=== PATIENT | female | born 1985 | race Caucasian/White ===

== ENCOUNTER 2023-08-03 12:44 | Emergency (ER) | payer OTHER ==
[2023-08-03 13:12] VITALS: RESP 18; TEMP 98.3; O2SAT 98
--- NOTE | 2023-08-03 13:37 | ERPHSYRPT ---
- History of Present Illness Time Seen by Provider: 08/03/23 13:20 Source: patient Exam Limitations: no limitations Patient Subjective Stated Complaint: pt states she was picking up a tote a work and her a pop in her back. pt states she has a history of spine cancer Triage Nursing Assessment: pt ambulated into the er; pt is axo x4; c/o upper back pain; pt states 10/10 pain to neck and upper back; tenderness and swelling to upper back; pt c/o numbness and tingling to extremities; skin PDW; no respiratory distess present; vitals wnl Physician History: Patient is a 37-year-old female presents to our ED for evaluation of pain to her thoracic and lumbar spine. Patient states she was at work picking up a tote when she felt a pop in her upper back. Patient states she then felt pain rated 10 out of 10 shooting into her arms and legs. Patient states she has a history of spine cancer with subsequent surgery. Patient states she just wants to make sure that she is okay. No blunt trauma no fever. No diarrhea. No rash. No change in bowel bladder function. No saddle anesthesia. No lower extremity weakness. No recent back procedures. Symptoms are moderate in intensity. Movement reproduces pain. Patient otherwise voices no other complaints or concerns at this time. Portions of this note were created with voice recognition technology. There may be grammatical, spelling, punctuation or sound alike errors Timing/Duration: today Severity: moderate Modifying Factors: Improves With: movement Associated Symptoms: denies symptoms, other (Tingling of extremities) Allergies/Adverse Reactions: Iodinated Contrast Media Allergy (Verified 08/03/23 12:56) Anaphylactic Reaction nitrofurantoin [From Macrobid] Allergy (Verified 08/03/23 12:56) Hives Home Medications: Dextroamphetamine/Amphetamine [Dextroamp-Amphetamin 20 mg Tab] 20 mg PO TID PRN 08/03/23 [History] Hx Tetanus, Diphtheria Vaccination/Date Given: Yes Hx Influenza Vaccination/Date Given: Yes Hx Pneumococcal Vaccination/Date Given: Yes Immunizations Up to Date: Yes Travel Risk - International Travel Have you traveled outside of the country in past 3 weeks: No - Coronavirus Screening Are you exhibiting any of the following symptoms?: No Close contact with a COVID-19 positive Pt in past 14-21 Days: No - Vaccine Status Have you recieved a Covid-19 vaccination: Yes [employer]: Moderna - Vaccination Dates Date of 2cond Vaccination (if applicable): 2020 - Review of Systems Constitutional: No Symptoms, No Fever, No Chills Eyes: No Symptoms Ears, Nose, & Throat: No Symptoms Respiratory: No Symptoms, No Cough, No Dyspnea Cardiac: No Symptoms, No Chest Pain, No Edema, No Syncope Abdominal/Gastrointestinal: No Symptoms, No Abdominal Pain, No Nausea, No Vomiting, No Diarrhea Genitourinary Symptoms: No Symptoms, No Dysuria Musculoskeletal: No Symptoms, No Back Pain, No Neck Pain Skin: No Symptoms, No Rash Neurological: No Symptoms, No Dizziness, No Focal Weakness, No Sensory Changes Psychological: No Symptoms Endocrine: No Symptoms Hematologic/Lymphatic: No Symptoms Immunological/Allergic: No Symptoms All Other Systems: Reviewed and Negative - Past Medical History Pertinent Past Medical History: Yes Neurological History: No Pertinent History ENT History: No Pertinent History Cardiac History: No Pertinent History Respiratory History: No Pertinent History Endocrine Medical History: No Pertinent History Musculoskeletal History: Bone Cancer, Other GI Medical History: No Pertinent History History: No Pertinent History Psycho-Social History: Anxiety Female Reproductive Disorders: No Pertinent History - Past Surgical History Past Surgical History: Yes Neuro Surgical History: No Pertinent History Cardiac: No Pertinent History Respiratory: No Pertinent History Gastrointestinal: No Pertinent History Genitourinary: No Pertinent History Musculoskeletal: Orthopedic Surgery Female Surgical History: No Pertinent History Other Surgical History: T2, 6,7,8 tumor removal - Social History Smoking Status: Never smoker Exposure to second hand smoke: Yes Drug Use: none Patient Lives Alone: Yes - Female History Hx Now: No - Nursing Vital Signs Nursing Vital Signs: Initial Vital Signs Temperature 98.3 F 08/03/23 12:58 Pulse Rate 97 H 08/03/23 12:58 Respiratory Rate 18 08/03/23 12:58 Blood Pressure 141/110 08/03/23 12:58 O2 Sat by Pulse Oximetry 98 08/03/23 12:58 Pain Scale Pain Intensity [] 10 Pain Intensity 9 - Physical Exam General Appearance: no apparent distress, alert Eye Exam: PERRL/EOMI, eyes nml inspection Ears, Nose, Throat Exam: moist mucous membranes Neck Exam: normal inspection, non-tender, supple, full range of motion Respiratory Exam: normal breath sounds, lungs clear, No respiratory distress Cardiovascular Exam: regular rate/rhythm, normal heart sounds, normal peripheral pulses Gastrointestinal/Abdomen Exam: soft, normal bowel sounds, No tenderness, No mass Back Exam: normal inspection, normal range of motion, other (Tenderness to palpation at her upper thoracic and lumbar spine region), No CVA tenderness, No vertebral tenderness Extremity Exam: normal inspection, normal range of motion, pelvis stable Neurologic Exam: alert, oriented x 3, cooperative, normal mood/affect, nml cerebellar function, nml station & gait, sensation nml, No motor deficits Skin Exam: normal color, warm, dry, No rash Lymphatic Exam: No adenopathy SpO2 Interpretation: normal SpO2: 98 O2 Delivery: Room Air - Course Nursing assessment & vital signs reviewed: Yes - CT Exams Thoracic Spine CT Interpretation: Tele-radiologist Report (Minimal dextroscoliosis otherwise negative for acute findings) Lumbar Spine CT Interpretation: Tele-radiologist Report (Normal CT lumbar spine) Ordered Tests: Active Orders 24 hr Category Date Time Status LUMBAR SPINE W/O [CT] Stat Exams 08/03/23 13:08 Completed THORACIC SPINE W/O CONTRAST [CT] Stat Exams 08/03/23 13:08 Completed Medication Summary Discontinued Medications Generic Name Dose Route Start Last Admin Trade Name Freq PRN Reason Stop Dose Admin Dexamethasone Sodium Phosphate 6 mg 08/03/23 13:42 08/03/23 13:48 Dexamethasone Sod Phosphate 10 Mg/Ml IM 08/03/23 13:43 6 mg STAT ONE Administration Dexamethasone Sodium Phosphate Confirm 08/03/23 13:44 Dexamethasone Sod Phosphate 10 Mg/Ml Administered 08/03/23 13:45 Dose 10 mg .ROUTE .STK-MED ONE Ketorolac Tromethamine 30 mg 08/03/23 13:42 08/03/23 13:47 Ketorolac Tromethamine 30 Mg/Ml Inj IM 08/03/23 13:43 30 mg STAT ONE Administration Ketorolac Tromethamine Confirm 08/03/23 13:44 Ketorolac Tromethamine 30 Mg/Ml Inj Administered 08/03/23 13:45 Dose 30 mg .ROUTE .STK-MED ONE - Progress Progress: improved Progress Note: 37-year-old female history of tumor resection to thoracic spine presents to our ED with acute onset thoracic and lumbar spine pain after lifting a heavy tote. Physical exam reveals tenderness mostly around upper thoracic spine. Overlying soft tissue intact. CT lumbar and thoracic spine negative for acute pathology. Patient received Toradol and Decadron for pain. No indication for further workup will discharge home. Patient agrees to follow-up with her primary care doctor within 48 hours for reevaluation. Portions of this note were created with voice recognition technology. There may be grammatical, spelling, punctuation or sound alike errors Complexity problem addressed is moderate acute complicated No critical care time Complex of data reviewed and analyzed is moderate. Test ordered test reviewed. Results analyzed and correlated clinically with history and physical exam Risk of complication and or risk of morbidity/mortality of patient management is moderate. A prescription for Toradol forwarded to patient's pharmacy Vital stable. Time spent to discharge patient is approximately 20 minutes. Plan of care established for shared decision making. No social determinants of health present impede follow-up. Portions of this note were created with voice recognition technology. There may be grammatical, spelling, punctuation or sound alike errors 08/03/23 14:04 Counseled pt/family regarding: diagnosis, need for follow-up, rad results - Departure Departure Disposition: Home Clinical Impression: Thoracic spine pain, extremity paresthesias Condition: Stable Critical Care Time: No Referrals: DOCTOR,NO FAMILY [Primary Care Provider] - Follow up/PCP as directed YOHAN HERNANDEZ MD [ACTIVE STAFF] - Follow up/PCP as directed Additional Instructions: Discharge/Care Plan ADALBERTOCIROLAURIE LANCE was seen on 08/03/23 in the Emergency Room. The patient was counseled regarding Diagnosis,Lab results, Imaging studies, need for follow up and when to return to the Emergency Room. Prescriptions given: Discharge Note I have spoken with the patient and/or caregivers. I have explained the patient's condition, diagnosis and treatment plan based on the information available to me at this time. I have answered the patient's and/or caregiver's questions and addressed any concerns. The patient and/or caregivers have as good understanding of the patient's diagnosis, condition and treatment plan as can be expected at this point. The vital signs have been stable. The patient's condition is stable and appropriate for discharge from the emergency department. The patient will pursue further outpatient evaluation with the primary care physician or other designated or consulting physician as outlined in the discharge instructions. The patient and/or caregivers are agreeable to this plan of care and follow-up instructions have been explained in detail. The patient and/or caregivers have received these instruction. The patient/and or caregivers are aware that any significant change in condition or worsening of symptoms should prompt an immediate return to this or the closest emergency department or call 911. Prescriptions: Ketorolac Trometh 10 mg Tab [TORAdol 10 MG TABLET] 10 mg PO TID 5 Days #15 tablet
[2023-08-03] MEDS ORDERED: TORAdol 30 mg Injection ONE (13:44)
[2023-08-03] MEDS ORDERED: DECADRON 10MG INJ. ONE (13:44)
[2023-08-03] MEDS: TORAdol 30 mg Injection IM ONE (13:47)
[2023-08-03] MEDS: DECADRON 10MG INJ. IM ONE (13:48)
--- NOTE | 2023-08-03 13:53 | XRAY ---
Indication: Pain. T6-T8 mass with surgery and radiation therapy 2004. Multiple contiguous axial images obtained through the thoracic spine. Sagittal and coronal reformatted images obtained. Comparison: None T6-T8 fusion hardware produces beam artifact limiting these levels. Minimal T4-T5 degenerative endplate spurring. Remaining levels negative for acute fracture, suspicious bony lesions, or spinal canal stenosis. Sagittal and coronal reformatted images demonstrates normal thoracic kyphosis and minimal dextroscoliosis centered at T8. No acute compression fracture or subluxation. Visualized noncontrasted soft tissues are unremarkable. Impression: 1. Beam artifact from T6-T8 fusion hardware. 2. Minimal T4-T5 degenerative endplate spurring and minimal dextroscoliosis. 3. Remaining CT thoracic spine without contrast exam is normal.
--- NOTE | 2023-08-03 13:55 | XRAY ---
Indication: Pain. T6-T8 mass with surgery and radiation therapy 2004. Multiple contiguous axial images obtained through the lumbar spine. Sagittal and coronal reformatted images obtained. Comparison: None Normal appearing bones, articulation, and soft tissues. Impression: Normal CT lumbar spine.
[2023-08-03 14:15] VITALS: BP 136/84; PULSE 71
== END 2023-08-03 14:20 | disposition home or self-care (01) ==
LOC: ED 12:44
DX: M54.6 Pain in thoracic spine (principal); R20.2 Paresthesia of skin; M54.50 Low back pain, unspecified; Z79.899 Other long term (current) drug therapy
CPT/HCPCS: 72128; 72131; 96372; 99284; J1100; J1885

== ENCOUNTER 2024-01-13 12:42 | Emergency (ER) | payer SELFPAY ==
[2024-01-13 12:52] VITALS: RESP 18; TEMP 97.9; O2SAT 99
[2024-01-13] MEDS ORDERED: TORAdol 30 mg Injection ONE (13:24)
[2024-01-13] MEDS: TORAdol 30 mg Injection IM ONE (13:25)
--- NOTE | 2024-01-13 14:00 | XRAY ---
Indication: Pain. No known injury. Comparison: None 3 view right wrist obtained. No bony, articular, or soft tissue abnormalities.
--- NOTE | 2024-01-13 14:12 | ERPHSYRPT ---
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 PT right wrist slightly swollen adn tender to touch. Pt right hand tender to touch. Physician History: 38-year-old [id number] female presented in the ER with complains of right wrist pain since yesterday. 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 Reports moderate to severe sharp pain radiating to the hand and proximally towards the elbow with painful movements at the wrist. No distal numbness or tingling. Denies any fever or chills. Allergies/Adverse Reactions: Iodinated Contrast Media Allergy (Verified 08/03/23 12:56) Anaphylactic Reaction nitrofurantoin [From Macrobid] Allergy (Verified 08/03/23 12:56) Hives Home Medications: Dextroamphetamine/Amphetamine [Dextroamp-Amphetamin 20 mg Tab] 20 mg PO TID PRN 08/03/23 [History] Hx Tetanus, Diphtheria Vaccination/Date Given: Yes Hx Influenza Vaccination/Date Given: Yes Hx Pneumococcal Vaccination/Date Given: Yes Immunizations Up to Date: No Travel Risk - International Travel Have you traveled outside of the country in past 3 weeks: No - Emerging Infectious Disease Are you exhibiting symptoms associated with any current EIDs: No - Review of Systems Constitutional: No Symptoms Ears, Nose, & Throat: No Symptoms Respiratory: No Symptoms Cardiac: No Symptoms Abdominal/Gastrointestinal: No Symptoms Musculoskeletal: Joint Pain, Joint Swelling Skin: No Symptoms Neurological: No Symptoms Hematologic/Lymphatic: No Symptoms - Past Medical History Pertinent Past Medical History: Yes Neurological History: No Pertinent History ENT History: No Pertinent History Cardiac History: No Pertinent History Respiratory History: No Pertinent History Endocrine Medical History: No Pertinent History Musculoskeletal History: Bone Cancer, Other GI Medical History: No Pertinent History History: No Pertinent History Psycho-Social History: Anxiety Female Reproductive Disorders: No Pertinent History - Past Surgical History Past Surgical History: Yes Neuro Surgical History: No Pertinent History Cardiac: No Pertinent History Respiratory: No Pertinent History Gastrointestinal: No Pertinent History Genitourinary: No Pertinent History Musculoskeletal: Orthopedic Surgery Female Surgical History: No Pertinent History Other Surgical History: T2, 6,7,8 tumor removal - Female History Hx Last Menstrual Period: 01/01/2024 Hx Now: No - Social History Smoking Status: Never smoker Exposure to second hand smoke: Yes Drug Use: none Patient Lives Alone: Yes - Social Determinants of Health Will the patient participate in the screening: Declined to provide - Nursing Vital Signs Nursing Vital Signs: Initial Vital Signs Temperature 97.9 F 01/13/24 12:46 Pulse Rate 90 01/13/24 12:46 Respiratory Rate 18 01/13/24 12:46 Blood Pressure 140/85 01/13/24 12:46 O2 Sat by Pulse Oximetry 99 01/13/24 12:46 Pain Scale Pain Intensity 7 - Physical Exam General Appearance: no apparent distress, alert Neck Exam: normal inspection, full range of motion Cardiovascular/Respiratory Exam: normal breath sounds, regular rate/rhythm Wrist Exam: bone tenderness (Mild generalized but more on the radial side right wrist), limited ROM, pain, soft tissue tenderness, swelling (Minimal) Hand Exam: normal inspection, no evidence of injury, normal ROM, swelling (Tenderness along lateral aspect) Neuro/Tendon Exam: normal sensation, normal motor functions, normal tendon functions Mental Status Exam: alert, oriented x 3, cooperative Skin Exam: normal color SpO2 Interpretation: normal SpO2: 99 O2 Delivery: Room Air Ordered Tests: Active Orders 24 hr Category Date Time Status WRIST (MIN 3 VIEWS) Stat Exams 01/13/24 13:20 Completed Medication Summary Discontinued Medications Generic Name Dose Route Start Last Admin Trade Name Raman PRN Reason Stop Dose Admin Ketorolac Tromethamine 30 mg 01/13/24 13:20 01/13/24 13:25 Ketorolac Tromethamine 30 Mg/Ml Inj IM 01/13/24 13:21 30 mg STAT ONE Administration Ketorolac Tromethamine Confirm 01/13/24 13:24 Ketorolac Tromethamine 30 Mg/Ml Inj Administered 01/13/24 13:25 Dose 30 mg .ROUTE .STK-MED ONE - Progress Progress: improved, pain not gone completely, re-examined Progress Note: 01/13/24 14:09 38 year-old is evaluated for right wrist pain since yesterday without any known direct trauma. Had some popping sensation while lifting objects at work. Patient denies any numbness in the fingers. Pain is reproducible and more tenderness on the lateral side of the distal forearm/wrist and hand. I believe patient has ligamentous strain as her x-rays are negative for fracture dislocation. She is given Toradol for symptomatic relief and will continue with diclofenac to go home. Placed in wrist splint. Outpatient orthopedics follow- up recommended. Discussed signs symptoms of worsening needing return to ER which she seems understanding. Counseled pt/family regarding: diagnosis, need for follow-up, rad results Medical Desision Making - Diagnostic Testing Diagnostic test were ordered, analyzed, and reviewed by me: Yes Radiological Interpretation: Interpreted by me, Reviewed by me - Risk of complications The pt has a mod risk of morbidity or mortality based on: Need for prescription drug management - Departure Departure Disposition: Home Clinical Impression: Right wrist sprain Condition: Stable Critical Care Time: No Referrals: DOCTOR,NO FAMILY [Primary Care Provider] - Follow up/PCP as directed SUZANNE MORENO MD [ACTIVE STAFF] - Follow up other (Call for appointment for reevaluation in 1 to 2 days.) Instructions: Common Wrist Injuries ED Additional Instructions: Take Tylenol/diclofenac as needed. Intermittent ice application. Avoid exertional activities. Follow-up with primary care/orthopedics for reevaluation. Return to ER for worsening pain swelling, difficulty movements, numbness tingling or weakness in the hand. Prescriptions: Diclofenac Sodium 50 mg [Voltaren 50 mg] 50 mg PO TID PRN 10 Days #25 tablet PRN Reason: Pain
[2024-01-13 14:14] VITALS: BP 135/95; PULSE 81
== END 2024-01-13 14:24 | disposition home or self-care (01) ==
LOC: ED 12:42
DX: S63.501A Unspecified sprain of right wrist, initial encounter (principal); X50.0XXA Overexertion from strenuous movement or load, initial encounter; X50.3XXA Overexertion from repetitive movements, initial encounter; Y92.512 Supermarket, store or market as the place of occurrence of the external cause; Y99.0 Civilian activity done for income or pay; Z79.899 Other long term (current) drug therapy
CPT/HCPCS: 73110; 96372; 99283; J1885; L3908

== ENCOUNTER 2024-03-30 11:49 | Emergency (ER) | payer BC ==
[2024-03-30 12:24] VITALS: TEMP 98.2
[2024-03-30 13:12] LABS: INFLUENZA A NEGATIVE (NEGATIVE); INFLUENZA B NEGATIVE (NEGATIVE); RESPIRATORY SYNCTIAL VIRUS NEGATIVE (NEGATIVE); SARS-CoV-2 Xpert Express NEGATIVE (NEGATIVE)
[2024-03-30 13:36] LABS: ADD URINE CULTURE? YES (NO); Appearance Cloudy (Clear); Bacteria Many /HPF (None Seen); Bilirubin Negative (Negative); Blood Negative (Negative); Epithelial Cells Many /HPF (None Seen); Glucose, Urine Negative (Negative); Hyaline Casts NONE SEEN /LPF (0-2); Ketones Negative (Negative); Leukocyte Esterase Negative (Negative); Nitrite Negative (Negative); Protein,Urine Dip Negative (Negative); RBC 0-2 /HPF (0-5); Specific Gravity 1.025 (1.005-1.030)
--- NOTE | 2024-03-30 13:52 | ERPHSYRPT ---
- History of Present Illness Time Seen by Provider: 03/30/24 13:31 Historian: patient Exam Limitations: no limitations Patient Subjective Stated Complaint: C/O Left flank pain that started on 03/26/24. Patient indicates she thinks she has a UTI but is also c/o nasal congestion, headache, fatigue. Triage Nursing Assessment: Patient ambulated back to ER. She is alert and oriented. No SOB. No cough. Skin tone normal. Nasal congestion is present. Physician History: 38 years old female with history of kidney stone/pyelonephritis presented in the ER with 5 days history of left flank pain moderate to severe sharp throbbing with some radiation to the left groin area with associated increased dysuria frequency and dark urine with associated nausea. Patient reports mild improvement in urinary symptoms today but still having pain. Also reports having headache and sinus/nasal congestion. No known sick contact. Allergies/Adverse Reactions: Iodinated Contrast Media Allergy (Verified 03/30/24 12:17) Anaphylactic Reaction nitrofurantoin [From Macrobid] Allergy (Verified 03/30/24 12:17) Hives Home Medications: Dextroamphetamine/Amphetamine [Dextroamp-Amphetamin 20 mg Tab] 20 mg PO TID PRN 08/03/23 [History] Hx Tetanus, Diphtheria Vaccination/Date Given: Yes Hx Influenza Vaccination/Date Given: Yes Hx Pneumococcal Vaccination/Date Given: Yes Immunizations Up to Date: Yes Travel Risk - International Travel Have you traveled outside of the country in past 3 weeks: No - Emerging Infectious Disease Are you exhibiting symptoms associated with any current EIDs: Yes Symptoms: Abdominal Pain, Headaches/Body Aches/, Vomitting - Review of Systems Constitutional: Fatigue Eyes: No Symptoms Ears, Nose, & Throat: Nose Congestion Respiratory: No Symptoms Cardiac: No Symptoms Abdominal/Gastrointestinal: Abdominal Pain, Nausea Genitourinary Symptoms: Dysuria, Frequency, Hematuria, Flank Pain Musculoskeletal: Back Pain Skin: No Symptoms Neurological: No Symptoms Endocrine: No Symptoms Hematologic/Lymphatic: No Symptoms Immunological/Allergic: No Symptoms - Past Medical History Pertinent Past Medical History: Yes Neurological History: No Pertinent History ENT History: No Pertinent History Cardiac History: No Pertinent History Respiratory History: No Pertinent History Endocrine Medical History: No Pertinent History Musculoskeletal History: Bone Cancer, Other GI Medical History: No Pertinent History History: No Pertinent History Psycho-Social History: Anxiety Female Reproductive Disorders: No Pertinent History Other Medical History: Bulding disc - Past Surgical History Past Surgical History: Yes Neuro Surgical History: No Pertinent History Cardiac: No Pertinent History Respiratory: No Pertinent History Gastrointestinal: No Pertinent History Genitourinary: No Pertinent History Musculoskeletal: Orthopedic Surgery Female Surgical History: No Pertinent History Other Surgical History: T6,7,8 tumor removal, screw in ankle - Female History Hx Last Menstrual Period: 1 month ago Hx Now: No - Social History Smoking Status: Never smoker Exposure to second hand smoke: Yes Drug Use: none Patient Lives Alone: Yes - Social Determinants of Health Will the patient participate in the screening: Yes Do you worry about a steady place to live?: No Do you have any problems with any of the following?: No known problems In the past 12 months,have you had to go without utilities?: No Transportation Issues: No Has anyone in your support network made you feel unsafe?: No Have you or anyone in your house had to go without enough: No - Nursing Vital Signs Nursing Vital Signs: Initial Vital Signs Temperature 98.2 F 03/30/24 12:22 Pulse Rate 100 H 03/30/24 12:22 Respiratory Rate 20 03/30/24 12:22 Blood Pressure 132/66 03/30/24 12:22 O2 Sat by Pulse Oximetry 98 03/30/24 12:22 Pain Scale Pain Intensity 10 - Physical Exam General Appearance: no apparent distress, alert Eye Exam: PERRL/EOMI Ears, Nose, Throat Exam: normal ENT inspection, moist mucous membranes Neck Exam: normal inspection, non-tender, supple, full range of motion Respiratory Exam: normal breath sounds, lungs clear Cardiovascular Exam: regular rate/rhythm, normal heart sounds Gastrointestinal/Abdomen Exam: soft, normal bowel sounds, tenderness (Flank with positive CVA tenderness) Extremity Exam: normal inspection, normal range of motion Neurologic Exam: alert, oriented x 3, cooperative Skin Exam: normal color SpO2 Interpretation: normal SpO2: 98 O2 Delivery: Room Air Ordered Tests: Active Orders 24 hr Category Date Time Status IV Insertion STAT Care 03/30/24 13:49 Active NPO (ED) STAT Care 03/30/24 13:49 Active ABDOMEN AND PELVIS W/0 CONTRAS [CT] Stat Exams 03/30/24 13:49 Completed CBC W DIFF Stat Lab 03/30/24 15:15 Completed CMP Stat Lab 03/30/24 15:15 Completed CULTURE,URINE Stat Lab 03/30/24 12:34 Received HCG QUALITATIVE, URINE Stat Lab 03/30/24 13:00 Completed LIPASE Stat Lab 03/30/24 15:15 Completed UA W/RFX UR CULTURE Stat Lab 03/30/24 12:34 Completed Medication Summary Discontinued Medications Generic Name Dose Route Start Last Admin Trade Name Raman PRN Reason Stop Dose Admin Sodium Chloride 1,000 mls @ 999 mls/hr 03/30/24 13:49 03/30/24 15:14 Sodium Chloride 0.9% 1000 Ml IV 03/30/24 14:49 Not Given .Q1H1M STA Ketorolac Tromethamine 30 mg 03/30/24 13:49 03/30/24 15:14 Ketorolac Tromethamine 30 Mg/Ml Inj IV 03/30/24 13:50 Not Given STAT ONE Ketorolac Tromethamine 30 mg 03/30/24 15:15 03/30/24 15:29 Ketorolac Tromethamine 30 Mg/Ml Inj IM 03/30/24 15:16 30 mg STAT ONE Administration Ketorolac Tromethamine Confirm 03/30/24 15:26 Ketorolac Tromethamine 30 Mg/Ml Inj Administered 03/30/24 15:27 Dose 30 mg .ROUTE .STK-MED ONE Ondansetron HCl 4 mg 03/30/24 13:49 03/30/24 15:14 Ondansetron Hcl 4 Mg/2 Ml Vial IV 03/30/24 13:50 Not Given STAT ONE Ondansetron HCl 4 mg 03/30/24 15:15 03/30/24 15:28 Zofran 4 Mg/Udtablet Orally Disintegrating PO 03/30/24 15:16 4 mg STAT ONE Administration Ondansetron HCl Confirm 03/30/24 15:27 Zofran 4 Mg/Udtablet Orally Disintegrating Administered 03/30/24 15:28 Dose 4 mg .ROUTE .STK-MED ONE Lab/Rad Data: Laboratory Result Diagrams 03/30/24 15:15 03/30/24 15:15 Laboratory Results 03/30/24 03/30/24 03/30/24 Range/Units 15:15 15:15 13:00 WBC 8.5 (3.98-10.04) x10^3/uL RBC 4.37 (3.93-5.22) x10^6/uL Hgb 14.1 (11.2-15.7) g/dL Hct 41.9 (34.1-44.9) % MCV 95.9 H (79.4-94.8) fL MCH 32.3 H (25.6-32.2) pg MCHC 33.7 (32.2-35.5) g/dL RDW 11.9 (11.7-14.4) % Plt Count 271 (182-369) x10^3/uL MPV 11.0 (9.4-12.3) fL Gran % 57.9 (34.0-71.1) % Immature Gran % (Auto) 0.2 (0.001-0.429) % Nucleat RBC Rel Count 0.0 (0.00-0.2) % Eos # (Auto) 0.22 (0.04-0.36) x10^3/uL Immature Gran # (Auto) 0.02 (0.001-0.031) x10^3u/L Absolute Lymphs (auto) 2.65 (1.18-3.74) x10^3/uL Absolute Monos (auto) 0.63 (0.24-0.86) x10^3/uL Absolute Nucleated RBC 0.00 (0.00-0.012) x10^3u/L Lymphocytes % 31.1 (19.3-51.7) % Monocytes % 7.4 (4.7-12.5) % Eosinophils % 2.6 (0.7-5.8) % Basophils % 0.8 (0.1-1.2) % Absolute Granulocytes 4.94 (1.56-6.13) x10^3/uL Basophils # 0.07 (0.01-0.08) x10^3/uL Sodium 137 (135-145) mmol/L Potassium 4.0 (3.5-5.1) mmol/L Chloride 105 (98-107) mmol/L Carbon Dioxide 22 (22-30) mmol/L Anion Gap 14.2 (5-15) MEQ/L BUN 20 H (7-17) mg/dL Creatinine 0.65 (0.52-1.04) mg/dL Estimated GFR 115.5 ML/MIN Glucose 106 (74-106) mg/dL Calcium 9.0 (8.4-10.2) mg/dL Total Bilirubin 0.40 (0.2-1.3) mg/dL AST 24 (14-36) U/L ALT 16 (0-35) U/L Alkaline Phosphatase 58 (38-126) U/L Serum Total Protein 7.3 (6.3-8.2) g/dL Albumin 4.4 (3.5-5.0) g/dL Lipase 73 (23-300) U/L Urine Color (Yellow) Urine Appearance (Clear) Urine pH (4.6-8.0) Ur Specific [place] (1.005-1.030) Urine Protein (Negative) Urine Glucose (UA) (Negative) mg/dL Urine Ketones (Negative) Urine Blood (Negative) Urine Nitrite (Negative) Urine Bilirubin (Negative) Urine Urobilinogen (0.2) mg/dL Ur Leukocyte Esterase (Negative) U Hyaline Cast (Auto) (0-2) /LPF Urine Microscopic RBC (0-5) /HPF Urine Microscopic WBC (0-5) /HPF Ur Epithelial Cells (None Seen) /HPF Urine Bacteria (None Seen) /HPF Urine Culture Reflexed (NO) Urine HCG, Qual NEGATIVE (NEGATIVE) Influenza Type A Ag (NEGATIVE) Influenza Type B Ag (NEGATIVE) RSV (PCR) (NEGATIVE) SARS-CoV-2 (PCR) (NEGATIVE) 03/30/24 03/30/24 Range/Units 12:34 12:28 WBC (3.98-10.04) x10^3/uL RBC (3.93-5.22) x10^6/uL Hgb (11.2-15.7) g/dL Hct (34.1-44.9) % MCV (79.4-94.8) fL MCH (25.6-32.2) pg MCHC (32.2-35.5) g/dL RDW (11.7-14.4) % Plt Count (182-369) x10^3/uL MPV (9.4-12.3) fL Gran % (34.0-71.1) % Immature Gran % (Auto) (0.001-0.429) % Nucleat RBC Rel Count (0.00-0.2) % Eos # (Auto) (0.04-0.36) x10^3/uL Immature Gran # (Auto) (0.001-0.031) x10^3u/L Absolute Lymphs (auto) (1.18-3.74) x10^3/uL Absolute Monos (auto) (0.24-0.86) x10^3/uL Absolute Nucleated RBC (0.00-0.012) x10^3u/L Lymphocytes % (19.3-51.7) % Monocytes % (4.7-12.5) % Eosinophils % (0.7-5.8) % Basophils % (0.1-1.2) % Absolute Granulocytes (1.56-6.13) x10^3/uL Basophils # (0.01-0.08) x10^3/uL Sodium (135-145) mmol/L Potassium (3.5-5.1) mmol/L Chloride (98-107) mmol/L Carbon Dioxide (22-30) mmol/L Anion Gap (5-15) MEQ/L BUN (7-17) mg/dL Creatinine (0.52-1.04) mg/dL Estimated GFR ML/MIN Glucose (74-106) mg/dL Calcium (8.4-10.2) mg/dL Total Bilirubin (0.2-1.3) mg/dL AST (14-36) U/L ALT (0-35) U/L Alkaline Phosphatase (38-126) U/L Serum Total Protein (6.3-8.2) g/dL Albumin (3.5-5.0) g/dL Lipase (23-300) U/L Urine Color Yellow (Yellow) Urine Appearance Cloudy A (Clear) Urine pH 6.0 (4.6-8.0) Ur Specific [place] 1.025 (1.005-1.030) Urine Protein Negative (Negative) Urine Glucose (UA) Negative (Negative) mg/dL Urine Ketones Negative (Negative) Urine Blood Negative (Negative) Urine Nitrite Negative (Negative) Urine Bilirubin Negative (Negative) Urine Urobilinogen 1.0 A (0.2) mg/dL Ur Leukocyte Esterase Negative (Negative) U Hyaline Cast (Auto) NONE SEEN (0-2) /LPF Urine Microscopic RBC 0-2 (0-5) /HPF Urine Microscopic WBC 3-5 (0-5) /HPF Ur Epithelial Cells Many A (None Seen) /HPF Urine Bacteria Many A (None Seen) /HPF Urine Culture Reflexed YES (NO) Urine HCG, Qual (NEGATIVE) Influenza Type A Ag NEGATIVE (NEGATIVE) Influenza Type B Ag NEGATIVE (NEGATIVE) RSV (PCR) NEGATIVE (NEGATIVE) SARS-CoV-2 (PCR) NEGATIVE (NEGATIVE) - Progress Progress: improved, pain not gone completely, re-examined Progress Note: 03/30/24 17:22 38 years old is evaluated in the ER for left flank pain with nausea along with also having some URI symptoms. Patient is given symptomatic treatment, on reev aluation her pain is better but not completely resolved. Workup showed normal white count, fairly unremarkable chemistries and no definite UTI. Obtain CT abdomen pelvis without contrast which is consistent with diffuse fecal load and possible fecal impaction. No pyelonephritis, stone or any other acute intra- abdominal pelvic findings. I have shared the results of workup with patient, recommended manual disimpaction which she did not agree. I have also suggested soapsuds enema which patient initially agreed but later on does not want it to be done and will do enemas at home. Patient is currently afebrile., COVID flu and RSV are negative. She is recommended to take daily MiraLAX, stool softener and use enema tonight. Discussed signs symptoms of worsening needing return to ER which he seems understanding. Counseled pt/family regarding: lab results, diagnosis, need for follow-up, rad results Medical Desision Making - Diagnostic Testing Diagnostic test were ordered, analyzed, and reviewed by me: Yes Radiological Interpretation: Reviewed by me - Risk of complications The pt has a mod risk of morbidity or mortality based on: Need for prescription drug management - Departure Departure Disposition: Home Clinical Impression: Flank pain, Constipation Condition: Stable Critical Care Time: No Referrals: DOCTOR,NO FAMILY [Primary Care Provider] - Follow up with PCP 1 day Instructions: Flank Pain, Fecal Impaction Additional Instructions: Take daily MiraLAX and stool softener. Use enema tonight. Follow-up with your primary care for reevaluation. Take Tylenol/ibuprofen as needed. Return to ER for any worsening. Prescriptions: Docusate Sodium 100 mg [Colace 100 MG] 100 mg PO BID #60 cap Sodium Phosphate,[place]-Dibasic [Fleet Enema] 266 ml RC DAILY PRN PRN 3 Days #3 amp PRN Reason: Constipation Polyethylene Glycol 3350 17 gm [Miralax Powder 17GM PACKET] 17 gm PO DAILY #30 packet
[2024-03-30 14:03] LABS: HCG URINE TEST NEGATIVE (NEGATIVE)
--- NOTE | 2024-03-30 15:06 | XRAY ---
Indication: Left flank pain. Multiple contiguous axial images obtained through the abdomen and pelvis without contrast using renal stone protocol. Comparison: None Lung bases clear. Heart not enlarged. No renal calculus or evidence for obstructive uropathy in either system. Stomach distended with food. Noncontrasted stomach and bowel loops appear nonobstructed with normal appendix. Moderate diffuse scattered colonic fecal debris with moderate rectal impaction. No free fluid/air. Remaining liver, gallbladder, pancreas, spleen, adrenal glands, kidneys, ureters, bladder, uterus, and aorta are unremarkable for noncontrast exam. Osseous structures intact with incompletely visualized mid thoracic spinal fusion hardware. Impression: 1. Moderate diffuse fecal stasis with rectal impaction. 2. Remaining CT abdomen/pelvis without contrast exam is negative.
[2024-03-30] MEDS: Zofran 4 MG/2 ML VIAL IV ONE (15:14)
[2024-03-30] MEDS: Sodium Chloride 0.9% 1000 ML 1,000 ML IV STA (15:14)
[2024-03-30] MEDS: TORAdol 30 mg Injection IV ONE (15:14)
[2024-03-30] MEDS ORDERED: TORAdol 30 mg Injection ONE (15:26)
[2024-03-30] MEDS ORDERED: ZOFRAN ODT 4 MG ONE (15:27)
[2024-03-30] MEDS: ZOFRAN ODT 4 MG PO ONE (15:28)
[2024-03-30] MEDS: TORAdol 30 mg Injection IM ONE (15:29)
[2024-03-30 16:00] LABS: Absolute Neutrophil Ct (ANC) 4.94 x10^3/uL (1.56-6.13); BASOPHIL % 0.8 % (0.1-1.2); Basophil (Absolute #) 0.07 x10^3/uL (0.01-0.08); Eosinophil % 2.6 % (0.7-5.8); Eosinophil (Absolute #) 0.22 x10^3/uL (0.04-0.36); Hematocrit 41.9 % (34.1-44.9); Hemoglobin 14.1 g/dL (11.2-15.7); IMMATURE GRAN # 0.02 x10^3u/L (0.001-0.031); IMMATURE GRAN % 0.2 % (0.001-0.429); Lymphocyte (Absolute #) 2.65 x10^3/uL (1.18-3.74); Lymphocytes % 31.1 % (19.3-51.7); Mean Cell Volume 95.9 fL (79.4-94.8); Mean Corpuscular Hemoglobin 32.3 pg (25.6-32.2); Mean Corpuscular Hgb Concent. 33.7 g/dL (32.2-35.5); Monocyte (Absolute #) 0.63 x10^3/uL (0.24-0.86); Monocytes % 7.4 % (4.7-12.5); Neutrophil % 57.9 % (34.0-71.1); Platelet Count 271 x10^3/uL (182-369); Red Blood Count 4.37 x10^6/uL (3.93-5.22); Red Cell Distribution Width 11.9 % (11.7-14.4); White Blood Count 8.5 x10^3/uL (3.98-10.04)
[2024-03-30 16:14] LABS: ALBUMIN 4.4 g/dL (3.5-5.0); ANION GAP 14.2 MEQ/L (5-15); BILIRUBIN,TOTAL 0.4 mg/dL (0.2-1.3); Creatinine 1 0.65 mg/dL (0.52-1.04); EST GLOMERULAR FILTRATION RATE 115.5 ML/MIN; Total Protein 7.3 g/dL (6.3-8.2)
[2024-03-30 17:26] VITALS: O2SAT 98
[2024-03-30 17:32] VITALS: BP 125/60; PULSE 88; RESP 20
== END 2024-03-30 17:33 | disposition home or self-care (01) ==
LOC: ED 11:49
DX: R10.9 Unspecified abdominal pain (principal); K59.00 Constipation, unspecified; R30.0 Dysuria; R11.0 Nausea; R51.9 Headache, unspecified; Z79.899 Other long term (current) drug therapy
CPT/HCPCS: 0241U; 36415; 74176; 80053; 81001; 81025; 83690; 85025; 87086; 96372; 99284; J1885; Q0162

== ENCOUNTER 2024-05-12 12:36 | Emergency (ER) | payer BC ==
[2024-05-12 13:56] VITALS: RESP 18; TEMP 97.2
--- NOTE | 2024-05-12 13:59 | ERPHSYRPT ---
- History of Present Illness Time Seen by Provider: 05/12/24 13:59 Source: patient Exam Limitations: no limitations Physician History: This is a 38-year-old white female patient who was having a sore throat that started last night and worsened throughout the night and this morning with associated swelling of her left jaw and left side neck. She is not having any trouble breathing in the room air oxygen saturation levels are 100%. She has not had stridor or difficulty swallowing. When she does swallow she does sense that there is some area of inflammation on the left side. She has not spit up not undigested food or pills that she has recently taken. She has not had a fever. Timing/Duration: yesterday Cough Quality/Degree: no cough Possible Cause: no prior episodes, unknown cause Associated Symptoms: denies symptoms Allergies/Adverse Reactions: Iodinated Contrast Media Allergy (Verified 05/12/24 13:56) Anaphylactic Reaction nitrofurantoin [From Macrobid] Allergy (Verified 05/12/24 13:56) Hives Home Medications: Dextroamphetamine/Amphetamine [Dextroamp-Amphetamin 20 mg Tab] 20 mg PO TID PRN 08/03/23 [History] Hx Tetanus, Diphtheria Vaccination/Date Given: Yes Hx Influenza Vaccination/Date Given: Yes Hx Pneumococcal Vaccination/Date Given: Yes Travel Risk - International Travel Have you traveled outside of the country in past 3 weeks: No - Emerging Infectious Disease Are you exhibiting symptoms associated with any current EIDs: Yes Symptoms: Abdominal Pain, Headaches/Body Aches/, Vomitting - Review of Systems Constitutional: No Symptoms Eyes: No Symptoms Ears, Nose, & Throat: Throat Pain (Left side with swallowing), Throat Swelling (Left side) Respiratory: No Stridor, No Wheezing Cardiac: No Symptoms Abdominal/Gastrointestinal: No Symptoms Genitourinary Symptoms: No Symptoms Musculoskeletal: No Symptoms Skin: No Symptoms Neurological: No Symptoms Psychological: No Symptoms Endocrine: No Symptoms Hematologic/Lymphatic: No Symptoms Immunological/Allergic: No Symptoms All Other Systems: Reviewed and Negative - Past Medical History Pertinent Past Medical History: Yes Neurological History: No Pertinent History ENT History: No Pertinent History Cardiac History: No Pertinent History Respiratory History: No Pertinent History Endocrine Medical History: No Pertinent History Musculoskeletal History: Bone Cancer, Other GI Medical History: No Pertinent History History: No Pertinent History Psycho-Social History: Anxiety Female Reproductive Disorders: No Pertinent History Other Medical History: Bulding disc - Past Surgical History Past Surgical History: Yes Neuro Surgical History: No Pertinent History Cardiac: No Pertinent History Respiratory: No Pertinent History Gastrointestinal: No Pertinent History Genitourinary: No Pertinent History Musculoskeletal: Orthopedic Surgery Female Surgical History: No Pertinent History Other Surgical History: T6,7,8 tumor removal, screw in ankle - Female History Hx Last Menstrual Period: 1 month ago - Social History Smoking Status: Never smoker Exposure to second hand smoke: Yes Drug Use: none Patient Lives Alone: Yes - Social Determinants of Health Will the patient participate in the screening: Yes Do you worry about a steady place to live?: No In the past 12 months,have you had to go without utilities?: No Transportation Issues: No Has anyone in your support network made you feel unsafe?: No Have you or anyone in your house had to go without enough: No - Nursing Vital Signs Nursing Vital Signs: Initial Vital Signs Temperature 97.2 F 05/12/24 13:54 Pulse Rate 89 05/12/24 13:54 Respiratory Rate 18 05/12/24 13:54 Blood Pressure 141/77 05/12/24 13:54 O2 Sat by Pulse Oximetry 97 05/12/24 13:54 Pain Scale Pain Intensity 8 - Physical Exam General Appearance: no apparent distress, alert, anxiety Eye Exam: PERRL/EOMI, eyes nml inspection Ears, Nose, Throat Exam: normal ENT inspection, moist mucous membranes Neck Exam: supple, other (Swelling submandibular gland on the left side with mild tenderness to palpation. No redness present), No subcutaneous emphysema Respiratory Exam: airway intact, No chest tenderness, No respiratory distress Gastrointestinal/Abdomen Exam: No tenderness Pelvic Exam: not done Rectal Exam: not done Back Exam: normal inspection, normal range of motion, No CVA tenderness, No vertebral tenderness Extremity Exam: normal inspection, normal range of motion, pelvis stable Neurologic Exam: alert, oriented x 3, cooperative, acid maker II-XII nml as tested, nml cerebellar function, nml station & gait, sensation nml Skin Exam: normal color, warm, dry Lymphatic Exam: No adenopathy SpO2 Interpretation: normal SpO2: 97 O2 Delivery: Room Air - Course Nursing assessment & vital signs reviewed: Yes Ordered Tests: Active Orders 24 hr Category Date Time Status NECK WO CONTRAST [CT] Stat Exams 05/12/24 14:36 Completed - Progress Progress: unchanged Air Movement: good Progress Note: 05/12/24 15:42 My medical decision making and the assignment of low complexity to this patient's medical issue today is based on review of the patient's past medical history, review of the patient's medication list, review the patient drug allergy list, history present illness and physical findings on examination. The workup in this patient includes CT scan of the neck soft tissues. Differential diagnosis includes but is not limited to pharyngeal or hypopharyngeal masses/abscesses, lymphadenitis, sialoadenitis Counseled pt/family regarding: diagnosis, need for follow-up, rad results Medical Desision Making - Diagnostic Testing Diagnostic test were ordered, analyzed, and reviewed by me: Yes Radiological Interpretation: Reviewed by me, Teleradiologist Report - Risk of complications The pt has a mod risk of morbidity or mortality based on: Need for prescription drug management - Departure Departure Disposition: Home Clinical Impression: Sialolithiasis of submandibular gland, Sialoadenitis of submandibular gland Condition: Stable Critical Care Time: No Referrals: DOCTOR,NO FAMILY [Primary Care Provider] - Follow up/PCP as directed Additional Instructions: Drink plenty of fluids and increase your oral fluid intake. Take your antibiotics as prescribed. Apply moist heat to the swollen area but not directly on the skin 3-4 times a day for the next 3 days. Massage to the submandibular gland and inside the oral cavity region of the gland. Suck on monique and or hard lemon drop candies. Call your primary care provider on Wednesday morning, 06/15/2024, to make arrangement for follow-up appointment in the next 3 to 4 days and for referral to sales research analyst. If your symptoms continue to get worse, proceed to the nearest emergency department that has sales research analyst available as discussed. Use Tylenol and ibuprofen for pain and swelling control Prescriptions: Ciprofloxacin [Cipro 500 MG] 500 mg PO BID #14 tablet
--- NOTE | 2024-05-12 15:17 | XRAY ---
Indication: Left submandibular swelling. Multiple contiguous axial images obtained through the neck without contrast. Cutaneous BB placed over region of interest. Comparison: None There is 4 x 5 mm left submandibular calculus, probably calculus in Norton's duct. Subsequent prominent left submandibular gland with stranding and small centimeter/subcentimeter lymph nodes corresponding to cutaneous BB favoring sialoadenitis. No suspicious fluid collection or soft tissue emphysema. Remaining parotid and right submandibular glands are unremarkable. Thyroid gland homogeneous. Major arteries/veins are normal in course and caliber. Supra-and infraglottic airway widely patent. Normal epiglottis. Osseous structures intact with mild C5-C6 degenerative endplate spurring. Base of brain and lung apices unremarkable. Impression: Calculus in left Norton's duct. Subsequent prominent left submandibular gland with stranding and reactive lymph nodes favoring sialoadenitis.
[2024-05-12 16:12] VITALS: BP 135/83; PULSE 82; O2SAT 98
== END 2024-05-12 16:13 | disposition home or self-care (01) ==
LOC: ED 12:36
DX: K11.5 Sialolithiasis (principal); K11.20 Sialoadenitis, unspecified; J02.9 Acute pharyngitis, unspecified; R22.1 Localized swelling, mass and lump, neck; Z79.899 Other long term (current) drug therapy
CPT/HCPCS: 70490; 99282

== ENCOUNTER 2025-02-26 08:00 | Observation (INO) | payer BC ==
--- NOTE | 2025-02-26 08:27 | ERPHSYRPT ---
- History of Present Illness Time Seen by Provider: 02/26/25 08:23 Source: patient Exam Limitations: no limitations Patient Subjective Stated Complaint: right flank pain that radiates to the abdomen Triage Nursing Assessment: Pt brought to the ER by her friend, vitals wnl, rates pain as a 10/10, pulses normal, skin n/w/d, pain w/palpatation to the right flank and abdomen, no dificulty breathing, denies chest pain, appers to be in moderate pain Physician History: 39-year-old female presents to our ED with a 1-day history of right-sided flank pain. Patient states the pain started yesterday. Patient states that she was on the couch all day due to the pain. Pain is got progressively worse. Patient reports a history of pyelonephritis and kidney stones. Patient does not believe it is a kidney stone. No chest pain or shortness of breath. No trauma no fever no diarrhea no rash. No obvious hematuria. Symptoms are moderate in intensity. No specific worsening or improving factors. Patient's "best friend" is at the bedside. They voiced no other complaints or concerns at this time. Portions of this note were created with voice recognition technology. There may be grammatical, spelling, punctuation or sound alike errors Timing/Duration: today Severity: moderate Modifying Factors: Improves With: nothing Associated Symptoms: denies symptoms Allergies/Adverse Reactions: Iodinated Contrast Media Allergy (Verified 02/26/25 08:21) Anaphylactic Reaction nitrofurantoin [From Macrobid] Allergy (Verified 02/26/25 08:21) Hives Home Medications: Bupropion HCl 150 mg Sr [Wellbutrin SR 150 MG] 150 mg PO BID 02/26/25 [History] Buspirone HCl [Bucapsol] 10 mg PO BID 02/26/25 [History] Clonidine HCl 0.1 mg [Clonidine 0.1 mg Tablet] 0.1 mg PO DAILY PRN 02/26/25 [History] Lisdexamfetamine Dimesylate 70 mg PO DAILY 02/26/25 [History] Hx Tetanus, Diphtheria Vaccination/Date Given: Yes Hx Influenza Vaccination/Date Given: Yes Hx Pneumococcal Vaccination/Date Given: Yes Travel Risk - International Travel Have you traveled outside of the country in past 3 weeks: No - Emerging Infectious Disease Are you exhibiting symptoms associated with any current EIDs: Yes Symptoms: Abdominal Pain, Vomitting - Review of Systems Constitutional: No Symptoms, No Fever, No Chills Eyes: No Symptoms Ears, Nose, & Throat: No Symptoms Respiratory: No Symptoms, No Cough, No Dyspnea Cardiac: No Symptoms, No Chest Pain, No Edema, No Syncope Abdominal/Gastrointestinal: No Symptoms, No Abdominal Pain, No Nausea, No Vomiting, No Diarrhea Genitourinary Symptoms: No Symptoms, No Dysuria Musculoskeletal: No Symptoms, No Back Pain, No Neck Pain Skin: No Symptoms, No Rash Neurological: No Symptoms, No Dizziness, No Focal Weakness, No Sensory Changes Psychological: No Symptoms Endocrine: No Symptoms Hematologic/Lymphatic: No Symptoms Immunological/Allergic: No Symptoms All Other Systems: Reviewed and Negative - Past Medical History Pertinent Past Medical History: Yes Neurological History: No Pertinent History ENT History: No Pertinent History Cardiac History: No Pertinent History Respiratory History: No Pertinent History Endocrine Medical History: No Pertinent History Musculoskeletal History: Bone Cancer, Other GI Medical History: No Pertinent History History: No Pertinent History Psycho-Social History: Anxiety Female Reproductive Disorders: No Pertinent History Other Medical History: Bulging disc - Past Surgical History Past Surgical History: Yes Neuro Surgical History: No Pertinent History Cardiac: No Pertinent History Respiratory: No Pertinent History Gastrointestinal: No Pertinent History Genitourinary: No Pertinent History Musculoskeletal: Orthopedic Surgery Female Surgical History: No Pertinent History Other Surgical History: T6,7,8 tumor removal, screw in ankle - Female History Hx Last Menstrual Period: end of last month Hx Now: No - Social History Smoking Status: Never smoker Exposure to second hand smoke: No Drug Use: none - Social Determinants of Health Will the patient participate in the screening: Yes Do you worry about a steady place to live?: No Do you have any problems with any of the following?: No known problems In the past 12 months,have you had to go without utilities?: No Transportation Issues: No Has anyone in your support network made you feel unsafe?: No Have you or anyone in your house had to go w/o enough food: No - Nursing Vital Signs Nursing Vital Signs: Initial Vital Signs Temperature 97.0 F 02/26/25 08:13 Pulse Rate 97 H 02/26/25 08:13 Blood Pressure 136/99 02/26/25 08:13 O2 Sat by Pulse Oximetry 98 02/26/25 08:13 Pain Scale Pain Intensity 9 - Physical Exam General Appearance: no apparent distress, alert Eye Exam: PERRL/EOMI, eyes nml inspection Ears, Nose, Throat Exam: normal ENT inspection, moist mucous membranes Neck Exam: normal inspection, full range of motion Respiratory Exam: normal breath sounds, lungs clear, airway intact, No respiratory distress Cardiovascular Exam: regular rate/rhythm, normal heart sounds, normal peripheral pulses Gastrointestinal/Abdomen Exam: soft, normal bowel sounds, tenderness, other (Mild tenderness to palpation at the periumbilical epigastric region.), No mass Back Exam: normal inspection, normal range of motion, other (Some tenderness to palpation along thoracic spine), No CVA tenderness, No vertebral tenderness Extremity Exam: normal inspection, normal range of motion, pelvis stable Neurologic Exam: alert, oriented x 3, cooperative, normal mood/affect, sensation nml, No motor deficits Skin Exam: normal color, warm, dry, No rash Lymphatic Exam: No adenopathy SpO2 Interpretation: normal SpO2: 98 O2 Delivery: Room Air - Course Nursing assessment & vital signs reviewed: Yes - CT Exams Abdomen/Pelvis CT Interpretation: Tele-radiologist Report (No acute intra-abdominal pathology) Thoracic Spine CT Interpretation: Tele-radiologist Report (No acute pathology observed) Ordered Tests: Active Orders 24 hr Category Date Time Status IV Insertion STAT Care 02/26/25 08:21 Active ABDOMEN AND PELVIS W/0 CONTRAS [CT] Stat Exams 02/26/25 08:22 Completed THORACIC SPINE W/O CONTRAST [CT] Stat Exams 02/26/25 12:05 Completed CBC W DIFF Stat Lab 02/26/25 08:41 Completed CMP Stat Lab 02/26/25 08:41 Completed CULTURE,URINE Stat Lab 02/26/25 08:44 Received HCG QUALITATIVE, URINE Stat Lab 02/26/25 08:44 Completed LIPASE Stat Lab 02/26/25 08:41 Completed TROPONIN Q4H Lab 02/26/25 08:41 Completed TROPONIN Q4H Lab 02/26/25 11:40 Completed TROPONIN Q4H Lab 02/26/25 16:30 Ordered UA W/RFX UR CULTURE Stat Lab 02/26/25 08:44 Completed Transfer Order Routine Transfer 02/26/25 Ordered Medication Summary Generic Name Dose Route Start Last Admin Trade Name Freq PRN Reason Stop Dose Admin Sodium Chloride 1,000 mls @ 100 mls/hr 02/26/25 08:30 02/26/25 08:56 Sodium Chloride 0.9% 1000 Ml IV 03/28/25 08:29 100 mls/hr .Q10H STEFFEN Administration Discontinued Medications Generic Name Dose Route Start Last Admin Trade Name Leónq PRN Reason Stop Dose Admin Hydromorphone HCl 0.5 mg 02/26/25 09:47 02/26/25 10:02 Hydromorphone 1 Mg/1ml Inj IV 02/26/25 09:48 0.5 mg STAT ONE Administration Hydromorphone HCl Confirm 02/26/25 09:57 Hydromorphone 1 Mg/1ml Inj Administered 02/26/25 09:58 Dose 1 mg .ROUTE .STK-MED ONE Hydromorphone HCl 0.5 mg 02/26/25 12:05 02/26/25 12:11 Hydromorphone 1 Mg/1ml Inj IV 02/26/25 12:06 0.5 mg STAT ONE Administration Hydromorphone HCl Confirm 02/26/25 12:08 Hydromorphone 1 Mg/1ml Inj Administered 02/26/25 12:09 Dose 1 mg .ROUTE .STK-MED ONE Hydromorphone HCl 0.5 mg 02/26/25 14:21 02/26/25 14:26 Hydromorphone 1 Mg/1ml Inj IV 02/26/25 14:22 0.5 mg STAT ONE Administration Hydromorphone HCl Confirm 02/26/25 14:25 Hydromorphone 1 Mg/1ml Inj Administered 02/26/25 14:26 Dose 1 mg .ROUTE .STK-MED ONE Levofloxacin/Dextrose 500 mg in 100 mls @ 100 mls/hr 02/26/25 09:53 02/26/25 11:13 Levofloxacin 500mg/100ml D5w IV 02/26/25 10:52 Infused STAT STA Infusion Levofloxacin/Dextrose Confirm 02/26/25 09:58 Levofloxacin 500mg/100ml D5w Administered 02/26/25 09:59 Dose 500 mg in 100 mls @ ud IV .STK-MED ONE Morphine Sulfate 4 mg 02/26/25 08:21 02/26/25 08:56 Morphine Sulfate 4 Mg/Ml Injection IV 02/26/25 08:22 4 mg STAT ONE Administration Morphine Sulfate Confirm 02/26/25 08:55 Morphine Sulfate 4 Mg/Ml Injection Administered 02/26/25 08:56 Dose 4 mg .ROUTE .STK-MED ONE Ondansetron HCl 4 mg 02/26/25 08:21 02/26/25 08:56 Ondansetron Hcl 4 Mg/2 Ml Vial IV 02/26/25 08:22 4 mg STAT ONE Administration Ondansetron HCl Confirm 02/26/25 08:54 Ondansetron Hcl 4 Mg/2 Ml Vial Administered 02/26/25 08:55 Dose 4 mg .ROUTE .STK-MED ONE Lab/Rad Data: Laboratory Result Diagrams 02/26/25 08:41 02/26/25 08:41 Laboratory Results 02/26/25 02/26/25 02/26/25 Range/Units 11:40 08:44 08:44 WBC (3.98-10.04) x10^3/uL RBC (3.93-5.22) x10^6/uL Hgb (11.2-15.7) g/dL Hct (34.1-44.9) % MCV (79.4-94.8) fL MCH (25.6-32.2) pg MCHC (32.2-35.5) g/dL RDW (11.7-14.4) % Plt Count (182-369) x10^3/uL MPV (9.4-12.3) fL Gran % (34.0-71.1) % Immature Gran % (Auto) (0.001-0.429) % Nucleat RBC Rel Count (0.00-0.2) % Eos # (Auto) (0.04-0.36) x10^3/uL Immature Gran # (Auto) (0.001-0.031) x10^3u/L Absolute Lymphs (auto) (1.18-3.74) x10^3/uL Absolute Monos (auto) (0.24-0.86) x10^3/uL Absolute Nucleated RBC (0.00-0.012) x10^3u/L Lymphocytes % (19.3-51.7) % Monocytes % (4.7-12.5) % Eosinophils % (0.7-5.8) % Basophils % (0.1-1.2) % Absolute Granulocytes (1.56-6.13) x10^3/uL Basophils # (0.01-0.08) x10^3/uL Sodium (135-145) mmol/L Potassium (3.5-5.1) mmol/L Chloride (98-107) mmol/L Carbon Dioxide (22-30) mmol/L Anion Gap (5-15) MEQ/L BUN (7-17) mg/dL Creatinine (0.52-1.04) mg/dL Estimated GFR ML/MIN Glucose (74-106) mg/dL Calcium (8.4-10.2) mg/dL Total Bilirubin (0.2-1.3) mg/dL AST (14-36) U/L ALT (0-35) U/L Alkaline Phosphatase (38-126) U/L Troponin I < 0.012 (0.000-0.033) ng/mL Serum Total Protein (6.3-8.2) g/dL Albumin (3.5-5.0) g/dL Lipase (23-300) U/L Urine Color Yellow (Yellow) Urine Appearance Clear (Clear) Urine pH 7.0 (4.6-8.0) Ur Specific [place] 1.020 (1.005-1.030) Urine Protein Negative (Negative) Urine Glucose (UA) Negative (Negative) mg/dL Urine Ketones Negative (Negative) Urine Blood Negative (Negative) Urine Nitrite Negative (Negative) Urine Bilirubin Negative (Negative) Urine Urobilinogen 0.2 (0.2) mg/dL Ur Leukocyte Esterase Moderate A (Negative) U Hyaline Cast (Auto) NONE SEEN (0-2) /LPF Urine Microscopic RBC 3-5 (0-5) /HPF Urine Microscopic WBC 11-20 A (0-5) /HPF Ur Epithelial Cells Moderate A (None Seen) /HPF Urine Bacteria Rare A (None Seen) /HPF Urine Yeast (Budding) Rare A (None Seen) /HPF Urine Culture Reflexed YES (NO) Urine HCG, Qual NEGATIVE (NEGATIVE) 02/26/25 02/26/25 02/26/25 Range/Units 08:41 08:41 08:41 WBC 9.7 (3.98-10.04) x10^3/uL RBC 3.81 L (3.93-5.22) x10^6/uL Hgb 12.7 (11.2-15.7) g/dL Hct 37.5 (34.1-44.9) % MCV 98.4 H (79.4-94.8) fL MCH 33.3 H (25.6-32.2) pg MCHC 33.9 (32.2-35.5) g/dL RDW 12.6 (11.7-14.4) % Plt Count 248 (182-369) x10^3/uL MPV 10.8 (9.4-12.3) fL Gran % 73.0 H (34.0-71.1) % Immature Gran % (Auto) 0.2 (0.001-0.429) % Nucleat RBC Rel Count 0.0 (0.00-0.2) % Eos # (Auto) 0.21 (0.04-0.36) x10^3/uL Immature Gran # (Auto) 0.02 (0.001-0.031) x10^3u/L Absolute Lymphs (auto) 1.50 (1.18-3.74) x10^3/uL Absolute Monos (auto) 0.84 (0.24-0.86) x10^3/uL Absolute Nucleated RBC 0.00 (0.00-0.012) x10^3u/L Lymphocytes % 15.4 L (19.3-51.7) % Monocytes % 8.6 (4.7-12.5) % Eosinophils % 2.2 (0.7-5.8) % Basophils % 0.6 (0.1-1.2) % Absolute Granulocytes 7.10 H (1.56-6.13) x10^3/uL Basophils # 0.06 (0.01-0.08) x10^3/uL Sodium 135 (135-145) mmol/L Potassium 4.6 (3.5-5.1) mmol/L Chloride 106 (98-107) mmol/L Carbon Dioxide 21 L (22-30) mmol/L Anion Gap 12.2 (5-15) MEQ/L BUN 14 (7-17) mg/dL Creatinine 0.60 (0.52-1.04) mg/dL Estimated GFR 117.0 ML/MIN Glucose 114 H (74-106) mg/dL Calcium 9.2 (8.4-10.2) mg/dL Total Bilirubin 1.10 (0.2-1.3) mg/dL AST 20 (14-36) U/L ALT 12 (0-35) U/L Alkaline Phosphatase 80 (38-126) U/L Troponin I < 0.012 (0.000-0.033) ng/mL Serum Total Protein 6.7 (6.3-8.2) g/dL Albumin 4.0 (3.5-5.0) g/dL Lipase 47 (23-300) U/L Urine Color (Yellow) Urine Appearance (Clear) Urine pH (4.6-8.0) Ur Specific [place] (1.005-1.030) Urine Protein (Negative) Urine Glucose (UA) (Negative) mg/dL Urine Ketones (Negative) Urine Blood (Negative) Urine Nitrite (Negative) Urine Bilirubin (Negative) Urine Urobilinogen (0.2) mg/dL Ur Leukocyte Esterase (Negative) U Hyaline Cast (Auto) (0-2) /LPF Urine Microscopic RBC (0-5) /HPF Urine Microscopic WBC (0-5) /HPF Ur Epithelial Cells (None Seen) /HPF Urine Bacteria (None Seen) /HPF Urine Yeast (Budding) (None Seen) /HPF Urine Culture Reflexed (NO) Urine HCG, Qual (NEGATIVE) - Progress Progress: improved Progress Note: 39-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 Physical exam is nonspecific however there are some tenderness to the periumbilical epigastric region. Troponin negative x 2. CT abdomen pelvis negative for acute pathology. We did a CT of the thoracic spine negative for acute pathology. However patient continued to complain of pain. Patient received several rounds of Dilaudid. Patient reports she is allergic to morphine. Pain improved transiently but then reoccurred. In light of patient's ongoing pain we decided to admit patient for intractable pain. I talked to hospitalist Dr. Ni who in light of patient's history of spine tumor decided to admit patient for MRI. Plan of care discussed with patient. She agrees to admission at [facility] for further evaluation and treatment. Portions of this note were created with voice recognition technology. There may be grammatical, spelling, punctuation or sound alike errors Complexity of problem addressed is moderate acute complicated. No critical care time. Complex of data reviewed and analyzed as extensive. Test ordered test reviewed results analyzed and correlated clinically with history and physical exam. Risk of complication and or risk of morbidity/mortality of patient management is high. Patient requires hospitalization for further evaluation and treatment. Vital stable. Time spent admit patient approximately 15 minutes. Plan of care established for shared decision making. No social determinants of health present to impede follow-up. Portions of this note were created with voice recognition technology. There may be grammatical, spelling, punctuation or sound alike errors 02/26/25 14:23 Counseled pt/family regarding: lab results, diagnosis, rad results - Departure Departure Disposition: Observation Clinical Impression: Flank pain, UTI (urinary tract infection), Intractable abdominal and back pain Condition: Stable Critical Care Time: No Referrals: DOCTOR,NO FAMILY [Primary Care Provider, UNKNOWN] - Follow up/PCP as directed
[2025-02-26 08:45] LABS: BASOPHIL % 0.6 % (0.1-1.2); Basophil (Absolute #) 0.06 x10^3/uL (0.01-0.08); Eosinophil (Absolute #) 0.21 x10^3/uL (0.04-0.36); Hematocrit 37.5 % (34.1-44.9); Hemoglobin 12.7 g/dL (11.2-15.7); IMMATURE GRAN # 0.02 x10^3u/L (0.001-0.031); IMMATURE GRAN % 0.2 % (0.001-0.429); Lymphocyte (Absolute #) 1.50 x10^3/uL (1.18-3.74); Mean Corpuscular Hemoglobin 33.3 pg (25.6-32.2); Mean Corpuscular Hgb Concent. 33.9 g/dL (32.2-35.5); Monocyte (Absolute #) 0.84 x10^3/uL (0.24-0.86); NUCLEATED RBC # 0.00 x10^3u/L (0.00-0.012); NUCLEATED RBC % 0.0 % (0.00-0.2); Platelet Count 248 x10^3/uL (182-369); Red Blood Count 3.81 x10^6/uL (3.93-5.22); White Blood Count 9.7 x10^3/uL (3.98-10.04)
[2025-02-26 08:49] LABS: HCG URINE TEST NEGATIVE (NEGATIVE)
[2025-02-26 08:51] LABS: Glucose, Urine Negative (Negative); Protein,Urine Dip Negative (Negative)
[2025-02-26] MEDS ORDERED: Zofran 4 MG/2 ML VIAL ONE (08:54)
[2025-02-26] MEDS ORDERED: MORPHINE SULFATE 4 MG INJ ONE (08:55)
[2025-02-26] MEDS: Zofran 4 MG/2 ML VIAL IV ONE (08:56)
[2025-02-26] MEDS: MORPHINE SULFATE 4 MG INJ IV ONE (08:56)
[2025-02-26 09:00] LABS: Calcium 9.2 mg/dL (8.4-10.2); Carbon Dioxide 21.0 mmol/L (22-30); Creatinine 1 0.6 mg/dL (0.52-1.04); EST GLOMERULAR FILTRATION RATE 117.0 ML/MIN; Glucose 114.0 mg/dL (74-106); Potassium 4.6 mmol/L (3.5-5.1); SGOT/AST 20.0 U/L (14-36); SGPT/ALT 12.0 U/L (0-35); Total Protein 6.7 g/dL (6.3-8.2)
[2025-02-26] MEDS ORDERED: Hydromorphone 1 mg/ml Injection ONE ×3 (09:57→14:25)
[2025-02-26] MEDS ORDERED: Levofloxacin 500MG/100ML D5W 500 MG/100 ML BAG IV ONE (09:58)
[2025-02-26] MEDS: Levofloxacin 500MG/100ML D5W 500 MG/100 ML BAG IV STA (10:02)
[2025-02-26] MEDS: Hydromorphone 1 mg/ml Injection IV ONE ×3 (10:02→14:26)
--- NOTE | 2025-02-26 10:53 | XRAY ---
Indication: Right flank pain. Multiple contiguous axial images obtained through the abdomen and pelvis without contrast. Comparison: March 30, 2024 Lung bases demonstrates new mild right base pleural parenchymal thickening/scarring with associated old rib fractures. Again incidental T6-T8 spinal fusion hardware. No infiltrate or effusion. Heart not enlarged. Noncontrasted stomach and bowel loops appear nonobstructed again with normal appendix. No free fluid/air. Remaining liver, gallbladder, pancreas, spleen, adrenal glands, kidneys, ureters, bladder, uterus, and aorta are unremarkable for noncontrast exam. Osseous structures intact. Impression: 1. New right lung base pleural-parenchymal thickening/scarring with associated old rib fractures. 2. Stable T6-T8 fusion hardware. 3. Remaining CT abdomen/pelvis without contrast exam continues to be negative.
--- NOTE | 2025-02-26 13:51 | XRAY ---
Indication: Pain. Multiple contiguous axial images obtained through the thoracic spine. Sagittal and coronal reformatted images obtained. Comparison: August 03, 2023 T6-T8 fusion hardware with adjacent medial right postsurgical pleural thickening again produces beam artifact limiting these levels. Grossly stable minimal T4-T5 degenerative endplate spurring, remote posterior right 5/6 rib fractures, and 2 posterior surgical clips interposed between left 7/8 ribs. Remaining levels again negative for acute fracture, suspicious bony lesions, or spinal canal stenosis. Sagittal and coronal reformatted images again demonstrates normal thoracic kyphosis and minimal dextroscoliosis centered at T8. No acute compression fracture or subluxation. Visualized noncontrasted soft tissues demonstrates mild bilateral dependent atelectasis. Impression: 1. Again artifact from T6-T8 fusion hardware, minimal T4-T5 degenerative endplate spurring, remote right 5/6 rib fractures, and minimal dextroscoliosis. 2. Remaining CT thoracic spine without contrast exam continues to be negative.
[2025-02-26] MEDS ORDERED: NORCO 5/325 MG PO PRN (15:26)
[2025-02-26] MEDS ORDERED: Zofran 4 MG/2 ML VIAL IV PRN (15:26)
--- NOTE | 2025-02-26 15:38 | PCM.HP ---
History of Present Illness - Chief Complaint Chief Complaint: Intractable back pain and abdominal pain Date: 02/26/25 History of Present Illness: is a A 39-year-old female with a past medical history of bone cancer, thoracic tumor removal, anxiety, and obesity presented to the emergency department with a one-day history of right-sided flank pain. She stated the pain began the day prior and progressively worsened throughout the day, leaving her unable to get off the couch. The pain was described as moderate in intensity, constant, and not clearly triggered or relieved by specific factors. She also reported associated nausea without vomiting and described the sensation as a muscle spasm. Although she has a history of pyelonephritis and kidney stones, she did not believe this episode was related to kidney stones. She denied chest pain, shortness of breath, fever, trauma, diarrhea, rash, or visible hematuria. At home, she attempted to alleviate the pain using ibuprofen, Aleve, and a heating pad, none of which were effective. Upon arrival to the floor, she appeared anxious. Her nurse noted that her feet appeared cold and turned inward, and the patient reported generalized muscle tightness throughout her body, including the right flank. She appeared to be experiencing an anxiety attack, prompting staff to provide a paper bag to assist with breathing. A muscle relaxant was ordered. She was initially started on IV Levaquin for suspected ur inary tract infection, which was later changed to IV ceftriaxone. For pain, Dilaudid was administered in ER but was reported as ineffective and did not offer lasting relief. IV Compazine was given to address nausea and provide anxiolytic benefit. CT imaging of the abdomen and thoracic spine was performed and revealed no acute abnormalities. At the time of evaluation, the patient denied any additional concerns. - Review of Systems Constitutional: No Fever, No Chills Eyes: No Symptoms Ears, Nose, & Throat: No Symptoms Respiratory: No Cough, No Short Of Breath Cardiac: No Chest Pain, No Edema, No Syncope Abdominal/Gastrointestinal: No Nausea, No Vomiting, No Diarrhea Genitourinary Symptoms: No Dysuria Musculoskeletal: Back Pain, No Neck Pain Skin: No Rash Neurological: No Dizziness, No Focal Weakness, No Sensory Changes Psychological: Anxiety Endocrine: No Symptoms Hematologic/Lymphatic: No Symptoms Immunological/Allergic: No Symptoms Medications & Allergies Home Medications: Home Medication List Bupropion HCl 150 mg Sr [Wellbutrin SR 150 MG] 150 mg PO BID 02/26/25 [History Confirmed 02/26/25] Buspirone HCl [Bucapsol] 10 mg PO BID 02/26/25 [History Confirmed 02/26/25] Clonidine HCl 0.1 mg [Clonidine 0.1 mg Tablet] 0.1 mg PO DAILY PRN 02/26/25 [History Confirmed 02/26/25] Lisdexamfetamine Dimesylate 70 mg PO DAILY 02/26/25 [History Confirmed 02/26/25] Allergies/Adverse Reactions: Allergies Allergy/AdvReac Type Severity Reaction Status Date / Time Iodinated Contrast Media Allergy Anaphylactic Verified 02/26/25 08:21 Reaction nitrofurantoin Allergy Hives Verified 02/26/25 08:21 [From Macrobid] - Past Medical History Past Medical History: Yes Neurological History: No Pertinent History ENT History: No Pertinent History Cardiac History: No Pertinent History Respiratory History: No Pertinent History Endocrine Medical History: No Pertinent History Musculoskelatal History: Bone Cancer, Other GI Medical History: No Pertinent History History: No Pertinent History Pyscho-Social History: Anxiety Reproductive Disorders: No Pertinent History Comment: Bulging disc - Female History Hx Last Menstrual Period: end of last month Are you now?: No - Past Surgical History Past Surgical History: Yes Neuro Surgical History: No Pertinent History Cardiac History: No Pertinent History Respiratory Surgery: No Pertinent History GI Surgical History: No Pertinent History Genitourinary Surgical Hx: No Pertinent History Musculskeletal Surgical Hx: Orthopedic Surgery Female Surgical History: No Pertinent History Other Surgical History: T6,7,8 tumor removal, screw in ankle - Social History Smoking Status: Never smoker Exposure to second hand smoke: No Alcohol: Occasionally Drug Use: none - Social Determinants of Health Will the patient participate in the screening: Yes Do you worry about a steady place to live?: No Do you have any problems with any of the following?: No known problems In the past 12 months,have you had to go without utilities?: No Have you or anyone in your house had to go without enough: No Transportation Issues: No Has anyone in your support network made you feel unsafe?: No - Physical Exam Vital Signs: Vital Signs - 24 hr Temp Pulse Resp BP BP Pulse Ox 02/26/25 14:56 98.6 F 105 H 16 128/70 93 L 07/28/25 14:45 96 02/26/25 14:33 98 02/26/25 14:30 84 147/93 97 02/26/25 14:00 144/71 98 02/26/25 13:30 123/54 98 02/26/25 13:29 97 02/26/25 13:20 96 02/26/25 13:10 96 02/26/25 13:00 80 16 96 02/26/25 12:50 95 02/26/25 12:40 95 02/26/25 12:30 97 02/26/25 12:25 99 02/26/25 12:10 99 02/26/25 12:02 100 H 97 02/26/25 11:30 100 H 118/72 97 02/26/25 11:01 105/56 99 02/26/25 10:30 102/83 98 02/26/25 10:01 90 114/72 98 02/26/25 09:30 94 H 110/77 99 02/26/25 09:18 89 124/89 97 02/26/25 09:03 126/94 02/26/25 08:32 100 02/26/25 08:13 97.0 F 97 H 136/99 136/99 98 General Appearance: mild distress, alert, obese Neurologic Exam: alert, oriented x 3, cooperative, normal mood/affect, nml cerebellar function, nml station & gait, sensation nml, other (Anxiety), No motor deficits Eye Exam: PERRL/EOMI, eyes nml inspection Ears, Nose, Throat Exam: normal ENT inspection, TMs normal, pharynx normal, moist mucous membranes Neck Exam: normal inspection, non-tender, supple, full range of motion Respiratory Exam: normal breath sounds, lungs clear, No respiratory distress Cardiovascular Exam: regular rate/rhythm, normal heart sounds, normal peripheral pulses Gastrointestinal/Abdomen Exam: soft, normal bowel sounds, tenderness, No mass Back Exam: normal inspection, normal range of motion, muscle spasm, No CVA tenderness, No vertebral tenderness Extremity Exam: normal inspection, normal range of motion, pelvis stable Skin Exam: normal color, warm, dry, No rash Lymphatic Exam: No adenopathy Results - Labs Lab/Micro Results: Lab Results-Last 24 Hours 07/28/25 07/28/25 07/28/25 Range/Units 08:41 08:41 08:41 WBC 9.7 (3.98-10.04) x10^3/uL RBC 3.81 L (3.93-5.22) x10^6/uL Hgb 12.7 (11.2-15.7) g/dL Hct 37.5 (34.1-44.9) % MCV 98.4 H (79.4-94.8) fL MCH 33.3 H (25.6-32.2) pg MCHC 33.9 (32.2-35.5) g/dL RDW 12.6 (11.7-14.4) % Plt Count 248 (182-369) x10^3/uL MPV 10.8 (9.4-12.3) fL Gran % 73.0 H (34.0-71.1) % Immature Gran % (Auto) 0.2 (0.001-0.429) % Nucleat RBC Rel Count 0.0 (0.00-0.2) % Eos # (Auto) 0.21 (0.04-0.36) x10^3/uL Immature Gran # (Auto) 0.02 (0.001-0.031) x10^3u/L Absolute Lymphs (auto) 1.50 (1.18-3.74) x10^3/uL Absolute Monos (auto) 0.84 (0.24-0.86) x10^3/uL Absolute Nucleated RBC 0.00 (0.00-0.012) x10^3u/L Lymphocytes % 15.4 L (19.3-51.7) % Monocytes % 8.6 (4.7-12.5) % Eosinophils % 2.2 (0.7-5.8) % Basophils % 0.6 (0.1-1.2) % Absolute Granulocytes 7.10 H (1.56-6.13) x10^3/uL Basophils # 0.06 (0.01-0.08) x10^3/uL Sodium 135 (135-145) mmol/L Potassium 4.6 (3.5-5.1) mmol/L Chloride 106 (98-107) mmol/L Carbon Dioxide 21 L (22-30) mmol/L Anion Gap 12.2 (5-15) MEQ/L BUN 14 (7-17) mg/dL Creatinine 0.60 (0.52-1.04) mg/dL Estimated GFR 117.0 ML/MIN Glucose 114 H (74-106) mg/dL Calcium 9.2 (8.4-10.2) mg/dL Total Bilirubin 1.10 (0.2-1.3) mg/dL AST 20 (14-36) U/L ALT 12 (0-35) U/L Alkaline Phosphatase 80 (38-126) U/L Troponin I < 0.012 (0.000-0.033) ng/mL Serum Total Protein 6.7 (6.3-8.2) g/dL Albumin 4.0 (3.5-5.0) g/dL Lipase 47 (23-300) U/L Urine Color (Yellow) Urine Appearance (Clear) Urine pH (4.6-8.0) Ur Specific [place] (1.005-1.030) Urine Protein (Negative) Urine Glucose (UA) (Negative) mg/dL Urine Ketones (Negative) Urine Blood (Negative) Urine Nitrite (Negative) Urine Bilirubin (Negative) Urine Urobilinogen (0.2) mg/dL Ur Leukocyte Esterase (Negative) U Hyaline Cast (Auto) (0-2) /LPF Urine Microscopic RBC (0-5) /HPF Urine Microscopic WBC (0-5) /HPF Ur Epithelial Cells (None Seen) /HPF Urine Bacteria (None Seen) /HPF Urine Yeast (Budding) (None Seen) /HPF Urine Culture Reflexed (NO) Urine HCG, Qual (NEGATIVE) 02/26/25 02/26/25 02/26/25 Range/Units 08:44 08:44 11:40 WBC (3.98-10.04) x10^3/uL RBC (3.93-5.22) x10^6/uL Hgb (11.2-15.7) g/dL Hct (34.1-44.9) % MCV (79.4-94.8) fL MCH (25.6-32.2) pg MCHC (32.2-35.5) g/dL RDW (11.7-14.4) % Plt Count (182-369) x10^3/uL MPV (9.4-12.3) fL Gran % (34.0-71.1) % Immature Gran % (Auto) (0.001-0.429) % Nucleat RBC Rel Count (0.00-0.2) % Eos # (Auto) (0.04-0.36) x10^3/uL Immature Gran # (Auto) (0.001-0.031) x10^3u/L Absolute Lymphs (auto) (1.18-3.74) x10^3/uL Absolute Monos (auto) (0.24-0.86) x10^3/uL Absolute Nucleated RBC (0.00-0.012) x10^3u/L Lymphocytes % (19.3-51.7) % Monocytes % (4.7-12.5) % Eosinophils % (0.7-5.8) % Basophils % (0.1-1.2) % Absolute Granulocytes (1.56-6.13) x10^3/uL Basophils # (0.01-0.08) x10^3/uL Sodium (135-145) mmol/L Potassium (3.5-5.1) mmol/L Chloride (98-107) mmol/L Carbon Dioxide (22-30) mmol/L Anion Gap (5-15) MEQ/L BUN (7-17) mg/dL Creatinine (0.52-1.04) mg/dL Estimated GFR ML/MIN Glucose (74-106) mg/dL Calcium (8.4-10.2) mg/dL Total Bilirubin (0.2-1.3) mg/dL AST (14-36) U/L ALT (0-35) U/L Alkaline Phosphatase (38-126) U/L Troponin I < 0.012 (0.000-0.033) ng/mL Serum Total Protein (6.3-8.2) g/dL Albumin (3.5-5.0) g/dL Lipase (23-300) U/L Urine Color Yellow (Yellow) Urine Appearance Clear (Clear) Urine pH 7.0 (4.6-8.0) Ur Specific [place] 1.020 (1.005-1.030) Urine Protein Negative (Negative) Urine Glucose (UA) Negative (Negative) mg/dL Urine Ketones Negative (Negative) Urine Blood Negative (Negative) Urine Nitrite Negative (Negative) Urine Bilirubin Negative (Negative) Urine Urobilinogen 0.2 (0.2) mg/dL Ur Leukocyte Esterase Moderate A (Negative) U Hyaline Cast (Auto) NONE SEEN (0-2) /LPF Urine Microscopic RBC 3-5 (0-5) /HPF Urine Microscopic WBC 11-20 A (0-5) /HPF Ur Epithelial Cells Moderate A (None Seen) /HPF Urine Bacteria Rare A (None Seen) /HPF Urine Yeast (Budding) Rare A (None Seen) /HPF Urine Culture Reflexed YES (NO) Urine HCG, Qual NEGATIVE (NEGATIVE) - Radiology Impressions Radiology Exams & Impressions: Radiology Procedures Category Date Time Status ABDOMEN AND PELVIS W/0 CONTRAS [CT] Stat Exams 02/26/25 08:22 Completed THORACIC SPINE W/O CONTRAST [CT] Stat Exams 02/26/25 12:05 Completed Assessment/Plan (1) UTI (urinary tract infection) Current Visit: Yes Status: Acute Assessment & Plan: - Levaquin gave in the ER IV - Ceftriaxone IV started IP - CBC, CMP reviewed - Tylenol PRN Code(s): N39.0 - URINARY TRACT INFECTION, SITE NOT SPECIFIED (2) Anxiety Current Visit: Yes Status: Chronic Assessment & Plan: - Advised to use paper sack for breathing until calmer - Resume home meds - Compazine PRN Code(s): F41.9 - ANXIETY DISORDER, UNSPECIFIED (3) Flank pain Current Visit: Yes Status: Acute Assessment & Plan: - CT abd/pelvis: Impression: 1. New right lung base pleural-parenchymal thickening/scarring with associated old rib fractures. 2. Stable T6-T8 fusion hardware. 3. Remaining CT abdomen/pelvis without contrast exam continues to be negative. - Likely 2:2 UTI and muscle spasm Code(s): R10.9 - UNSPECIFIED ABDOMINAL PAIN (4) Hx of spinal fusion Current Visit: Yes Status: Acute Assessment & Plan: - CT thoracic spine: Impression: 1. Again artifact from T6-T8 fusion hardware, minimal T4-T5 degenerative endplate spurring, remote right 5/6 rib fractures, and minimal dextroscoliosis. 2. Remaining CT thoracic spine without contrast exam continues to be negative. Code(s): Z98.1 - ARTHRODESIS STATUS (5) Obesity (BMI 30-39.9) Current Visit: Yes Status: Chronic Assessment & Plan: - Advised diet and exercise control VTE: SCD's Next of KIN: Kaveh Rebolledo D/C plan: 1-2 days Code status: Full Management of pt care time: > 45 minutes. Code(s): E66.9 - OBESITY, UNSPECIFIED Telemedicine Encounter - Telemedicine Encounter Telemedicine Encounter: "The entirety of this encounter was performed via Telemedicine" This visit was performed using real-time audio and video connection between my location and thepatients locationwith the assistance of a surrogateat the patients location. Written or verbal consent was obtained from the patie nt/guardian to perform this visit usingsynchrLucid Colloidstelemedicine technology. Any patient questions regarding the telemedicine interaction were answered.
[2025-02-26] MEDS ORDERED: MEDICATION INTERVENTION MC SCH (16:00)
[2025-02-26] MEDS: Cyclobenzaprine 10 MG PO ONE (16:05)
[2025-02-26] MEDS: Compazine 10 MG/2 ML IV PRN (17:06)
[2025-02-26] MEDS: TYLENOL 325 MG PO PRN (19:38)
[2025-02-26] MEDS: CLONIDINE 0.1 MG TABLET PO PRN (19:39)
[2025-02-26] MEDS: Wellbutrin SR 150 MG PO SCH (22:03)
[2025-02-26] MEDS: Cyclobenzaprine 10 MG PO SCH (22:03)
[2025-02-26] MEDS: BUSPAR 5 MG PO SCH (22:03)
[2025-02-27] MEDS: NORCO 10-325 MG PO PRN (03:42)
[2025-02-27 06:54] LABS: Hematocrit 35.1 % (34.1-44.9); Hemoglobin 11.7 g/dL (11.2-15.7); Mean Corpuscular Hemoglobin 33.2 pg (25.6-32.2); Mean Corpuscular Hgb Concent. 33.3 g/dL (32.2-35.5); Platelet Count 159 x10^3/uL (182-369); Red Blood Count 3.52 x10^6/uL (3.93-5.22); White Blood Count 6.4 x10^3/uL (3.98-10.04)
[2025-02-27 07:09] LABS: Calcium 8.9 mg/dL (8.4-10.2); Carbon Dioxide 22.0 mmol/L (22-30); Creatinine 1 0.72 mg/dL (0.52-1.04); EST GLOMERULAR FILTRATION RATE 109.0 ML/MIN; Glucose 131.0 mg/dL (74-106); Potassium 4.3 mmol/L (3.5-5.1); SGOT/AST 25.0 U/L (14-36); SGPT/ALT 11.0 U/L (0-35); Total Protein 6.2 g/dL (6.3-8.2)
[2025-02-27] MEDS ORDERED: LISDEXAMFETAMINE DIMESYLATE 70 MG PO SCH (10:00)
[2025-02-27] MEDS ORDERED: BENADRYL 25 MG CAPSULE PO PRN (11:28)
--- NOTE | 2025-02-27 11:34 | PCM.DS ---
Discharge Summary Date of Admission: 02/26/25 14:43 Date of Discharge: 02/27/25 Admitting Physician: JUDD MOTA MD Primary Care Provider: NO FAMILY DOCTOR Allergies Allergies Iodinated Contrast Media Allergy (Verified 02/26/25 08:21) Anaphylactic Reaction nitrofurantoin [From Macrobid] Allergy (Verified 02/26/25 08:21) [facility] Summary - Hospital Course Hospital Course: is a A 39-year-old female with a past medical history of bone cancer, thoracic tumor removal, anxiety, and obesity presented to the emergency department with a one-day history of right-sided flank pain. She stated the pain began the day prior and progressively worsened throughout the day, leaving her unable to get off the couch. The pain was described as moderate in intensity, constant, and not clearly triggered or relieved by specific factors. She also reported associated nausea without vomiting and described the sensation as a muscle spasm. Although she has a history of pyelonephritis and kidney stones, she did not believe this episode was related to kidney stones. She denied chest pain, shortness of breath, fever, trauma, diarrhea, rash, or visible hematuria. At home, she attempted to alleviate the pain using ibuprofen, Aleve, and a heating pad, none of which were effective. Upon arrival to the floor, she appeared anxious. Her nurse noted that her feet appeared cold and turned inward, and the patient reported generalized muscle tightness throughout her body, including the right flank. She appeared to be experiencing an anxiety attack, prompting staff to provide a paper bag to assist with breathing. A muscle relaxant was ordered. She was initially started on IV Levaquin for suspected urinary tract infection, which was later changed to IV ceftriaxone. For pain, Dilaudid was administered in ER but was reported as ineffective and did not offer lasting relief. IV Compazine was given to address nausea and provide anxiolytic benefit. CT imaging of the abdomen and thoracic spine was performed and revealed no acute abnormalities. At the time of evaluation, the patient denied any additional concerns. 02/27 Today, the patient continues to report bilateral lateral lumbar muscle pain. She stated that she slept well last night with the help of a muscle relaxer and experienced no pain overnight; however, the pain returned this morning. Her urine culture was negative, and antibiotics have been discontinued. An MRI of the back is scheduled for today, as the patient is concerned about possible recurrence of a prior thoracic tumor. She reports that the ER provider mentioned this as a potential concern, which has since contributed to her anxiety. If the MRI results are unremarkable, the patient may be discharged home with a prescription for a muscle relaxer. - Vitals & Intake/Output Vital Signs: Vital Signs Temperature 97.1 F 02/27/25 07:17 Pulse Rate 94 H 02/27/25 07:17 Respiratory Rate 21 02/27/25 07:17 Blood Pressure 118/56 02/27/25 07:17 O2 Sat by Pulse Oximetry 94 L 02/27/25 07:17 Intake & Output: Intake & Output 02/24/25 02/25/25 02/26/25 02/27/25 11:59 11:59 11:59 11:59 Intake Total 240 Balance 240 Weight 92.533 kg 111.9 kg - Lab Result Diagrams: 02/27/25 06:50 02/27/25 06:50 Lab Results-Last 24 Hrs: Lab Results-Last 24 Hours 02/26/25 02/26/25 02/27/25 Range/Units 11:40 16:00 06:50 WBC 6.4 (3.98-10.04) x10^3/uL RBC 3.52 L (3.93-5.22) x10^6/uL Hgb 11.7 (11.2-15.7) g/dL Hct 35.1 (34.1-44.9) % MCV 99.7 H (79.4-94.8) fL MCH 33.2 H (25.6-32.2) pg MCHC 33.3 (32.2-35.5) g/dL RDW 12.6 (11.7-14.4) % Plt Count 159 L D (182-369) x10^3/uL MPV 11.2 (9.4-12.3) fL Sodium (135-145) mmol/L Potassium (3.5-5.1) mmol/L Chloride (98-107) mmol/L Carbon Dioxide (22-30) mmol/L Anion Gap (5-15) MEQ/L BUN (7-17) mg/dL Creatinine (0.52-1.04) mg/dL Estimated GFR ML/MIN Glucose (74-106) mg/dL Calcium (8.4-10.2) mg/dL Total Bilirubin (0.2-1.3) mg/dL AST (14-36) U/L ALT (0-35) U/L Alkaline Phosphatase (38-126) U/L Troponin I < 0.012 < 0.012 (0.000-0.033) ng/mL Serum Total Protein (6.3-8.2) g/dL Albumin (3.5-5.0) g/dL 02/27/25 Range/Units 06:50 WBC (3.98-10.04) x10^3/uL RBC (3.93-5.22) x10^6/uL Hgb (11.2-15.7) g/dL Hct (34.1-44.9) % MCV (79.4-94.8) fL MCH (25.6-32.2) pg MCHC (32.2-35.5) g/dL RDW (11.7-14.4) % Plt Count (182-369) x10^3/uL MPV (9.4-12.3) fL Sodium 134 L (135-145) mmol/L Potassium 4.3 (3.5-5.1) mmol/L Chloride 103 (98-107) mmol/L Carbon Dioxide 22 (22-30) mmol/L Anion Gap 12.0 (5-15) MEQ/L BUN 17 (7-17) mg/dL Creatinine 0.72 (0.52-1.04) mg/dL Estimated GFR 109.0 ML/MIN Glucose 131 H (74-106) mg/dL Calcium 8.9 (8.4-10.2) mg/dL Total Bilirubin 0.80 (0.2-1.3) mg/dL AST 25 (14-36) U/L ALT 11 (0-35) U/L Alkaline Phosphatase 68 (38-126) U/L Troponin I (0.000-0.033) ng/mL Serum Total Protein 6.2 L (6.3-8.2) g/dL Albumin 3.5 (3.5-5.0) g/dL Micro Results-Entire Visit: Microbiology 02/26/25 08:44 Urine Culture - Preliminary Urine, Void <10K NORMAL SKIN MIGEL PROBABLE SKIN CONTAMINANT - Radiology Exams Ordered Rad Exams-Entire Visit: Radiology Procedures Category Date Time Status ABDOMEN AND PELVIS W/0 CONTRAS [CT] Stat Exams 02/26/25 08:22 Completed MRI T-SPINE WITH CONTRAST [MRI] Routine Exams 02/27/25 11:01 Ordered THORACIC SPINE W/O CONTRAST [CT] Stat Exams 02/26/25 12:05 Completed Discharge Exam General Appearance: no apparent distress, alert, anxiety, obese Neurologic Exam: alert, oriented x 3, cooperative, normal mood/affect, nml cerebellar function, sensation nml, No motor deficits Eye Exam: PERRL, EOMI, eyes nml inspection Ears, Nose, Throat Exam: normal ENT inspection, pharynx normal, moist mucous membranes Neck Exam: normal inspection, non-tender, supple, full range of motion Respiratory Exam: normal breath sounds, lungs clear, No respiratory distress Cardiovascular Exam: regular rate/rhythm, normal heart sounds Gastrointestinal/Abdomen Exam: soft, No tenderness, No mass Pelvic Exam: deferred Rectal Exam: deferred Back Exam: normal inspection, decreased range of motion, muscle spasm, point tenderness, No CVA tenderness, No vertebral tenderness Extremity Exam: normal inspection, normal range of motion Skin Exam: normal color, warm, dry Final Diagnosis/Problem List - Final Discharge Diagnosis/Problem (1) UTI (urinary tract infection) Current Visit: Yes Status: Ruled-out Code(s): N39.0 - URINARY TRACT INFECTION, SITE NOT SPECIFIED (2) Anxiety Current Visit: Yes Status: Chronic Code(s): F41.9 - ANXIETY DISORDER, UNSPECIFIED (3) Flank pain Current Visit: Yes Status: Acute Code(s): R10.9 - UNSPECIFIED ABDOMINAL PAIN (4) Hx of spinal fusion Current Visit: Yes Status: Acute Code(s): Z98.1 - ARTHRODESIS STATUS (5) Obesity (BMI 30-39.9) Current Visit: Yes Status: Chronic Assessment & Plan: (1) UTI (urinary tract infection) Current Visit: Yes Status: Acute Assessment & Plan: - Levaquin gave in the ER IV - Ceftriaxone IV started IP - CBC, CMP reviewed - Tylenol PRN / - UC negative - antbx stopped - CBC, CMP reviewed Code(s): N39.0 - URINARY TRACT INFECTION, SITE NOT SPECIFIED (2) Anxiety Current Visit: Yes Status: Chronic Assessment & Plan: - Advised to use paper sack for breathing until calmer - Resume home meds - Compazine PRN 02/27 - Pt reports anxiety 2:2 concern about tumor reoccurrence. Code(s): F41.9 - ANXIETY DISORDER, UNSPECIFIED (3) Flank pain Current Visit: Yes Status: Acute Assessment & Plan: - CT abd/pelvis: Impression: 1. New right lung base pleural-parenchymal thickening/scarring with associated old rib fractures. 2. Stable T6-T8 fusion hardware. 3. Remaining CT abdomen/pelvis without contrast exam continues to be negative. - Likely 2:2 UTI and muscle spasm 02/27 - resolved Code(s): R10.9 - UNSPECIFIED ABDOMINAL PAIN (4) Hx of spinal fusion Current Visit: Yes Status: Acute Assessment & Plan: - CT thoracic spine: Impression: 1. Again artifact from T6-T8 fusion hardware, minimal T4-T5 degenerative endplate spurring, remote right 5/6 rib fractures, and minimal dextroscoliosis. 2. Remaining CT thoracic spine without contrast exam continues to be negative. Code(s): Z98.1 - ARTHRODESIS STATUS (5) Obesity (BMI 30-39.9) Current Visit: Yes Status: Chronic Assessment & Plan: - Advised diet and exercise control Code(s): E66.9 - OBESITY, UNSPECIFIED (6) Thoracic back pain Current Visit: Yes Status: Acute Assessment & Plan: - CT thoracic spine: Impression: 1. Again artifact from T6-T8 fusion hardware, minimal T4-T5 degenerative endplate spurring, remote right 5/6 rib fractures, and minimal dextroscoliosis. 2. Remaining CT thoracic spine without contrast exam continues to be negative. - MRI pending Code(s): M54.6 - PAIN IN THORACIC SPINE (7) Lumbar paraspinal muscle spasm Current Visit: Yes Status: Acute Assessment & Plan: - Cyclobenzaprine BID Code(s): M62.830 - MUSCLE SPASM OF BACK - Discharge Discharge Date: 02/27/25 Disposition: Home, Self-Care Condition: Stable Prescriptions: New Cyclobenzaprine HCl 10 mg [Cyclobenzaprine 10 MG] 5 mg PO BID 10 Days #20 tablet Continue Bupropion HCl 150 mg Sr [Wellbutrin SR 150 MG] 150 mg PO BID Clonidine HCl 0.1 mg [Clonidine 0.1 mg Tablet] 0.1 mg PO DAILY PRN PRN Reason: Anxiety Buspirone HCl [Bucapsol] 10 mg PO BID Lisdexamfetamine Dimesylate 70 mg PO DAILY Follow up with: DOCTOR,NO FAMILY [Primary Care Provider, UNKNOWN]
[2025-02-27] MEDS: ROCEPHIN 1 GM / 100 ML NaCl 1 GM/100 ML IVPB IV SCH (12:30)
--- NOTE | 2025-02-27 16:31 | PCM.NOTE ---
Date and Time: 02/27/25 8177 Subjective Assessment: is a A 39-year-old female with a past medical history of bone cancer, thoracic tumor removal, anxiety, and obesity presented to the emergency department with a one-day history of right-sided flank pain. She stated the pain began the day prior and progressively worsened throughout the day, leaving her unable to get off the couch. The pain was described as moderate in intensity, constant, and not clearly triggered or relieved by specific factors. She also reported associated nausea without vomiting and described the sensation as a muscle spasm. Although she has a history of pyelonephritis and kidney stones, she did not believe this episode was related to kidney stones. She denied chest pain, shortness of breath, fever, trauma, diarrhea, rash, or visible hematuria. At home, she attempted to alleviate the pain using ibuprofen, Aleve, and a heating pad, none of which were effective. Upon arrival to the floor, she appeared anxious. Her nurse noted that her feet appeared cold and turned inward, and the patient reported generalized muscle tightness throughout her body, including the right flank. She appeared to be experiencing an anxiety attack, prompting staff to provide a paper bag to assist with breathing. A muscle relaxant was ordered. She was initially started on IV Levaquin for suspected urinary tract infection, which was later changed to IV ceftriaxone. For pain, Dilaudid was administered in ER but was reported as ineffective and did not offer lasting relief. IV Compazine was given to address nausea and provide anxiolytic benefit. CT imaging of the abdomen and thoracic spine was performed and revealed no acute abnormalities. At the time of evaluation, the patient denied any additional concerns. 02/27 Today, the patient continues to report bilateral lateral lumbar muscle pain. She stated that she slept well last night with the help of a muscle relaxer and experienced no pain overnight; however, the pain returned this morning. Her urine culture was negative, and antibiotics have been discontinued. An MRI of the back is scheduled for today, as the patient is concerned about possible recurrence of a prior thoracic tumor. She reports that the ER provider mentioned this as a potential concern, which has since contributed to her anxiety. If the MRI results are unremarkable, the patient may be discharged home with a prescription for a muscle relaxer. Pt concerned about previous hx of allergic reaction to IV contrast with MRI. She is unsure of the type of contrast she had in the past but states it made her feel like her throat was closing. Discussed concerns with insulator technician and MRI changed to w/o contrast. Pt refused this and only wants an MRI with contrast due to her hx. Per insulator technician this will have to be completed tomorrow then to provide proper pre-medication. Pt willing to wait and does not want to f/u OP. - Review of Systems Constitutional: No Fever, No Chills Eyes: No Symptoms Ears, Nose, & Throat: No Symptoms Respiratory: No Cough, No Short Of Breath Cardiac: No Chest Pain, No Edema, No Syncope Abdominal/Gastrointestinal: No Abdominal Pain, No Nausea, No Vomiting, No Diar terri Genitourinary Symptoms: No Dysuria Musculoskeletal: Back Pain, Myalgias, No Neck Pain Skin: No Rash Neurological: No Dizziness, No Focal Weakness, No Sensory Changes Psychological: No Symptoms, Anxiety Endocrine: No Symptoms Hematologic/Lymphatic: No Symptoms Immunological/Allergic: No Symptoms Objective Exam General Appearance: no apparent distress, alert, obese Neurologic Exam: alert, oriented x 3, cooperative, normal mood/affect, nml cerebellar function, sensation nml, No motor deficits Skin Exam: normal color, warm, dry Eye Exam: PERRL, EOMI, eyes nml inspection Ears, Nose, Throat Exam: normal ENT inspection, pharynx normal, moist mucous membranes Neck Exam: normal inspection, non-tender, supple, full range of motion Respiratory Exam: normal breath sounds, lungs clear, No respiratory distress Cardiovascular Exam: regular rate/rhythm, normal heart sounds Gastrointestinal/Abdomen Exam: soft, No tenderness, No mass Extremity Exam: normal inspection, normal range of motion Back Exam: normal inspection, decreased range of motion, muscle spasm (BL lumbar regions), No CVA tenderness, No vertebral tenderness Pelvic Exam: deferred Rectal Exam: deferred Objective Data Vital Signs: Vital Signs - 24 hr Temp Pulse Resp BP Pulse Ox 02/27/25 16:00 97.3 F 96 H 20 124/65 93 L 02/27/25 11:28 96 F 70 19 117/57 97 02/27/25 07:17 97.1 F 94 H 21 118/56 94 L 02/27/25 04:11 97.9 F 92 H 17 126/59 92 L 02/27/25 04:00 97.2 F 90 16 123/58 94 L 02/26/25 23:15 97.2 F 90 16 123/58 94 L 02/26/25 19:34 97.6 F 95 H 16 132/64 96 Pain Assessment - Last Documented Pain Intensity 9 Pain Scale Used 0-10 Pain Scale Intake and Output: Intake & Output 02/25/25 02/26/25 02/27/25 02/28/25 11:59 11:59 11:59 11:59 Intake Total 240 240 Balance 240 240 Weight 92.533 kg 111.9 kg Lab Results: Lab Results-Last 24 Hours 02/26/25 02/27/25 02/27/25 Range/Units 16:00 06:50 06:50 WBC 6.4 (3.98-10.04) x10^3/uL RBC 3.52 L (3.93-5.22) x10^6/uL Hgb 11.7 (11.2-15.7) g/dL Hct 35.1 (34.1-44.9) % MCV 99.7 H (79.4-94.8) fL MCH 33.2 H (25.6-32.2) pg MCHC 33.3 (32.2-35.5) g/dL RDW 12.6 (11.7-14.4) % Plt Count 159 L D (182-369) x10^3/uL MPV 11.2 (9.4-12.3) fL Sodium 134 L (135-145) mmol/L Potassium 4.3 (3.5-5.1) mmol/L Chloride 103 (98-107) mmol/L Carbon Dioxide 22 (22-30) mmol/L Anion Gap 12.0 (5-15) MEQ/L BUN 17 (7-17) mg/dL Creatinine 0.72 (0.52-1.04) mg/dL Estimated GFR 109.0 ML/MIN Glucose 131 H (74-106) mg/dL Calcium 8.9 (8.4-10.2) mg/dL Total Bilirubin 0.80 (0.2-1.3) mg/dL AST 25 (14-36) U/L ALT 11 (0-35) U/L Alkaline Phosphatase 68 (38-126) U/L Troponin I < 0.012 (0.000-0.033) ng/mL Serum Total Protein 6.2 L (6.3-8.2) g/dL Albumin 3.5 (3.5-5.0) g/dL Radiology Exams: Radiology Procedures Category Date Time Status ABDOMEN AND PELVIS W/0 CONTRAS [CT] Stat Exams 02/26/25 08:22 Completed MRI T-SPINE W & W/O CONTRAST [MRI] Routine Exams 02/28/25 13:00 Ordered MRI T-SPINE WITH CONTRAST [MRI] Routine Exams 02/28/25 12:30 Ordered THORACIC SPINE W/O CONTRAST [CT] Stat Exams 02/26/25 12:05 Completed Medications: Medications Generic Name Dose Route Start Last Admin Trade Name Freq PRN Reason Stop Dose Admin Acetaminophen 650 mg 02/26/25 15:27 02/26/25 19:38 Acetaminophen 325 Mg Tablet PO 03/28/25 15:26 650 mg Q6H PRN PRN Administration PAIN AND/OR FEVER Hydrocodone Bitart/Acetaminophen 1 tablet 02/27/25 03:39 02/27/25 13:08 Hydrocodone/Acetamin 10-325 Mg Tablet PO 03/04/25 03:38 1 tablet Q4H PRN PRN Administration PAIN Bupropion HCl 150 mg 02/26/25 22:00 02/27/25 09:02 Bupropion Hcl 150 Mg Tablet Sr PO 03/28/25 21:59 150 mg BID STEFFEN Administration Buspirone HCl 10 mg 02/26/25 22:00 02/27/25 09:02 Buspirone Hcl 5 Mg Tablet PO 03/28/25 21:59 10 mg BID STEFFEN Administration Clonidine 0.1 mg 02/26/25 15:27 02/27/25 04:47 Clonidine Hcl 0.1 Mg Tablet PO 03/28/25 15:26 0.1 mg DAILY PRN PRN Administration ANXIETY Diphenhydramine HCl 50 mg 02/28/25 12:00 Diphenhydramine Hcl 25 Mg Capsule PO 02/28/25 12:01 ONCE ONE Miscellaneous Information 1 each 02/26/25 16:00 Medication Intervention 1 Each Each 03/28/25 15:59 .RN TO CHECK STEFFEN Prednisone 50 mg 02/27/25 22:00 Prednisone 20 Mg Tablet PO 02/28/25 12:01 2200,0600,1200 STEFFEN Prochlorperazine Edisylate 10 mg 02/26/25 15:57 02/27/25 16:13 Prochlorperazine Edisylate 10 Mg/2 Ml Vial IV 03/28/25 15:56 10 mg Q6H PRN PRN Administration NAUSEA/VOMITING Discontinued Medications Generic Name Dose Route Start Last Admin Trade Name Freq PRN Reason Stop Dose Admin Hydrocodone Bitart/Acetaminophen 1 tab 02/26/25 15:26 Hydrocodone/Apap 5/325 1 Tab Tablet PO 03/03/25 15:25 QID PRN PRN PAIN Cyclobenzaprine HCl 5 mg 02/26/25 15:57 02/26/25 16:05 Cyclobenzaprine Hcl 10 Mg Tablet PO 02/26/25 15:58 5 mg STAT ONE Administration Cyclobenzaprine HCl 5 mg 02/26/25 22:00 02/27/25 09:02 Cyclobenzaprine Hcl 10 Mg Tablet PO 03/28/25 21:59 5 mg BID STEFFEN Administration Diphenhydramine HCl 25 mg 02/27/25 11:28 Diphenhydramine Hcl 25 Mg Capsule PO 03/29/25 11:27 PRN PRN ALLERGIES Hydromorphone HCl 0.5 mg 02/26/25 09:47 02/26/25 10:02 Hydromorphone 1 Mg/1ml Inj IV 02/26/25 09:48 0.5 mg STAT ONE Administration Hydromorphone HCl Confirm 02/26/25 09:57 Hydromorphone 1 Mg/1ml Inj Administered 02/26/25 09:58 Dose 1 mg .ROUTE .STK-MED ONE Hydromorphone HCl 0.5 mg 02/26/25 12:05 02/26/25 12:11 Hydromorphone 1 Mg/1ml Inj IV 02/26/25 12:06 0.5 mg STAT ONE Administration Hydromorphone HCl Confirm 02/26/25 12:08 Hydromorphone 1 Mg/1ml Inj Administered 02/26/25 12:09 Dose 1 mg .ROUTE .STK-MED ONE Hydromorphone HCl 0.5 mg 02/26/25 14:21 02/26/25 14:26 Hydromorphone 1 Mg/1ml Inj IV 02/26/25 14:22 0.5 mg STAT ONE Administration Hydromorphone HCl Confirm 02/26/25 14:25 Hydromorphone 1 Mg/1ml Inj Administered 02/26/25 14:26 Dose 1 mg .ROUTE .STK-MED ONE Sodium Chloride 1,000 mls @ 100 mls/hr 02/26/25 08:30 02/26/25 08:56 Sodium Chloride 0.9% 1000 Ml IV 03/28/25 08:29 100 mls/hr .Q10H STEFFEN Administration Levofloxacin/Dextrose 500 mg in 100 mls @ 100 mls/hr 02/26/25 09:53 02/26/25 11:13 Levofloxacin 500mg/100ml D5w IV 02/26/25 10:52 Infused STAT STA Infusion Levofloxacin/Dextrose Confirm 02/26/25 09:58 Levofloxacin 500mg/100ml D5w Administered 02/26/25 09:59 Dose 500 mg in 100 mls @ ud IV .STK-MED ONE Sodium Chloride Confirm 02/26/25 08:55 Sodium Chloride 0.9% 1000 Ml Administered 02/26/25 08:56 Dose 1,000 mls @ ud .ROUTE .STK-MED ONE Ceftriaxone Sodium 1 gm in 100 mls @ 200 mls/hr 02/27/25 10:00 02/27/25 12:30 Rocephin 1 Gm / 100 Ml Nacl IV 03/29/25 09:59 Not Given Q24H10 STEFFEN Morphine Sulfate 4 mg 02/26/25 08:21 02/26/25 08:56 Morphine Sulfate 4 Mg/Ml Injection IV 02/26/25 08:22 4 mg STAT ONE Administration Morphine Sulfate Confirm 02/26/25 08:55 Morphine Sulfate 4 Mg/Ml Injection Administered 02/26/25 08:56 Dose 4 mg .ROUTE .STK-MED ONE Ondansetron HCl 4 mg 02/26/25 08:21 02/26/25 08:56 Ondansetron Hcl 4 Mg/2 Ml Vial IV 02/26/25 08:22 4 mg STAT ONE Administration Ondansetron HCl Confirm 02/26/25 08:54 Ondansetron Hcl 4 Mg/2 Ml Vial Administered 02/26/25 08:55 Dose 4 mg .ROUTE .STK-MED ONE Ondansetron HCl 4 mg 02/26/25 15:26 Ondansetron Hcl 4 Mg/2 Ml Vial IV 03/28/25 15:25 Q6H PRN PRN NAUSEA/VOMITING Prednisone 50 mg 02/28/25 12:00 Prednisone 20 Mg Tablet PO 02/28/25 12:01 ONCE ONE Prednisone 50 mg 02/27/25 22:00 Prednisone 20 Mg Tablet PO 02/27/25 22:01 ONCE ONE Assessment/Plan (1) UTI (urinary tract infection) Current Visit: Yes Status: Ruled-out Code(s): N39.0 - URINARY TRACT INFECTION, SITE NOT SPECIFIED (2) Anxiety Current Visit: Yes Status: Chronic Code(s): F41.9 - ANXIETY DISORDER, UNSPECIFIED (3) Flank pain Current Visit: Yes Status: Acute Code(s): R10.9 - UNSPECIFIED ABDOMINAL PAIN (4) Hx of spinal fusion Current Visit: Yes Status: Acute Code(s): Z98.1 - ARTHRODESIS STATUS (5) Obesity (BMI 30-39.9) Current Visit: Yes Status: Chronic Code(s): E66.9 - OBESITY, UNSPECIFIED (6) Thoracic back pain Current Visit: Yes Status: Acute Code(s): M54.6 - PAIN IN THORACIC SPINE (7) Lumbar paraspinal muscle spasm Current Visit: Yes Status: Acute Assessment & Plan: (1) UTI (urinary tract infection) Current Visit: Yes Status: Acute Assessment & Plan: - Levaquin gave in the ER IV - Ceftriaxone IV started IP - CBC, CMP reviewed - Tylenol PRN 02/07 - UC negative - Antbx stopped - CBC, CMP reviewed Code(s): N39.0 - URINARY TRACT INFECTION, SITE NOT SPECIFIED (2) Anxiety Current Visit: Yes Status: Chronic Assessment & Plan: - Advised to use paper sack for breathing until calmer - Resume home meds - Compazine PRN 02/27 - Pt reports anxiety 2:2 concern about tumor reoccurrence. Code(s): F41.9 - ANXIETY DISORDER, UNSPECIFIED (3) Flank pain Current Visit: Yes Status: Acute Assessment & Plan: - CT abd/pelvis: Impression: 1. New right lung base pleural-parenchymal thickening/scarring with associated old rib fractures. 2. Stable T6-T8 fusion hardware. 3. Remaining CT abdomen/pelvis without contrast exam continues to be negative. - Likely 2:2 UTI and muscle spasm 7/29 - resolved Code(s): R10.9 - UNSPECIFIED ABDOMINAL PAIN (4) Hx of spinal fusion Current Visit: Yes Status: Acute Assessment & Plan: - CT thoracic spine: Impression: 1. Again artifact from T6-T8 fusion hardware, minimal T4-T5 degenerative endplate spurring, remote right 5/6 rib fractures, and minimal dextroscoliosis. 2. Remaining CT thoracic spine without contrast exam continues to be negative. Code(s): Z98.1 - ARTHRODESIS STATUS (5) Obesity (BMI 30-39.9) Current Visit: Yes Status: Chronic Assessment & Plan: - Advised diet and exercise control Code(s): E66.9 - OBESITY, UNSPECIFIED (6) Thoracic back pain Current Visit: Yes Status: Acute Assessment & Plan: - CT thoracic spine: Impression: 1. Again artifact from T6-T8 fusion hardware, minimal T4-T5 degenerative endplate spurring, remote right 5/6 rib fractures, and minimal dextroscoliosis. 2. Remaining CT thoracic spine without contrast exam continues to be negative. - MRI pending- to be done in AM as pt wants with an w/o contrast only d/t her hx. Code(s): M54.6 - PAIN IN THORACIC SPINE (7) Lumbar paraspinal muscle spasm Current Visit: Yes Status: Acute Assessment & Plan: - Cyclobenzaprine BID- Stopped as pt will be receiving benadryl and also getting [place] PRN Code(s): M62.830 - MUSCLE SPASM OF BACK Code(s): M62.830 - MUSCLE SPASM OF BACK
[2025-02-27] MEDS: Hydromorphone 1 mg/ml Injection IV ONE (20:42)
[2025-02-27] MEDS ORDERED: DELTASONE 20 MG PO SCH (22:00)
[2025-02-27] MEDS ORDERED: DELTASONE 20 MG PO ONE (22:00)
--- NOTE | 2025-02-28 08:00 | PCM.DS ---
Discharge Summary Date of Admission: 02/26/25 14:43 Date of Discharge: 02/28/25 Admitting Physician: JUDD MOTA MD Primary Care Provider: NO FAMILY DOCTOR Allergies Allergies Iodinated Contrast Media Allergy (Verified 02/26/25 08:21) Anaphylactic Reaction nitrofurantoin [From Macrobid] Allergy (Verified 02/26/25 08:21) Hives MRI CONTRAST Allergy (Severe, Uncoded 02/27/25 18:19) Anaphylactic Reaction PT UNSURE WHICH MRI CONTRAST SPECIFICALLY Hospital Summary - Hospital Course Hospital Course: is a A 39-year-old female with a past medical history of bone cancer, thoracic tumor removal, anxiety, and obesity presented to the emergency department with a one-day history of right-sided flank pain. She stated the pain began the day prior and progressively worsened throughout the day, leaving her unable to get off the couch. The pain was described as moderate in intensity, constant, and not clearly triggered or relieved by specific factors. She also reported associated nausea without vomiting and described the sensation as a muscle spasm. Although she has a history of pyelonephritis and kidney stones, she did not believe this episode was related to kidney stones. She denied chest pain, shortness of breath, fever, trauma, diarrhea, rash, or visible hematuria. At home, she attempted to alleviate the pain using ibuprofen, Aleve, and a heating pad, none of which were effective. Upon arrival to the floor, she appeared anxious. Her nurse noted that her feet appeared cold and turned inward, and the patient reported generalized muscle tightness throughout her body, including the right flank. She appeared to be experiencing an anxiety attack, prompting staff to provide a paper bag to assist with breathing. A muscle relaxant was ordered. She was initially started on IV Levaquin for suspected urinary tract infection, which was later changed to IV ceftriaxone. For pain, Dilaudid was administered in ER but was reported as ineffective and did not offer lasting relief. IV Compazine was given to address nausea and provide anxiolytic benefit. CT imaging of the abdomen and thoracic spine was performed and revealed no acute abnormalities. At the time of evaluation, the patient denied any additional concerns. 02/27 Today, the patient continues to report bilateral lateral lumbar muscle pain. She stated that she slept well last night with the help of a muscle relaxer and experienced no pain overnight; however, the pain returned this morning. Her urine culture was negative, and antibiotics have been discontinued. An MRI of the back is scheduled for today, as the patient is concerned about possible recurrence of a prior thoracic tumor. She reports that the ER provider mentioned this as a potential concern, which has since contributed to her anxiety. If the MRI results are unremarkable, the patient may be discharged home with a prescription for a muscle relaxer. Pt concerned about previous hx of allergic reaction to IV contrast with MRI. She is unsure of the type of contrast she had in the past but states it made her feel like her throat was closing. Discussed concerns with reliability technologist and MRI changed to w/o contrast. Pt refused this and only wants an MRI with contrast due to her hx. Per reliability technologist this will have to be completed tomorrow then to provide proper pre-medication. Pt willing to wait and does not want to f/u OP. 02/28 The patient is resting in bed and is scheduled for an MRA/MRI today at 1:00 PM. She has requested IV preoperative medications due to a previous contrast allergy during an MRI. Although oral premedication is the standard of care, the patient has refused oral administration. She continues to report bilateral lumbar tightness and throbbing pain, along with right foot paresthesia described as numbness. An outpatient neurology follow-up appointment has been arranged. The patient denies any loss of bowel or bladder control and has no saddle anesthesia. Muscle relaxants were discontinued last night as the patient is expected to receive Benadryl today and is also taking narcotic pain medications. The patient requested Dilaudid, and a one-time dose was ordered overnight by the covering provider; however, to reduce the risk of respiratory depression, Dilaudid will be discontinued. Pending MRI results, if no significant findings are noted, the patient may be discharged with outpatient follow-up through her primary care provider and neurology. - Vitals & Intake/Output Vital Signs: Vital Signs Temperature 97.3 F 02/28/25 07:29 Pulse Rate 82 02/28/25 07:29 Respiratory Rate 22 02/28/25 07:29 Blood Pressure 100/56 02/28/25 07:29 O2 Sat by Pulse Oximetry 95 02/28/25 07:29 Intake & Output: Intake & Output 02/25/25 02/26/25 02/27/25 02/28/25 11:59 11:59 11:59 11:59 Intake Total 240 1380 Balance 240 1380 Weight 92.533 kg 111.9 kg - Lab Result Diagrams: 02/27/25 06:50 02/27/25 06:50 Micro Results-Entire Visit: Microbiology 02/26/25 08:44 Urine Culture - Preliminary Urine, Void <10K NORMAL SKIN MIGEL PROBABLE SKIN CONTAMINANT - Radiology Exams Ordered Rad Exams-Entire Visit: Radiology Procedures Category Date Time Status ABDOMEN AND PELVIS W/0 CONTRAS [CT] Stat Exams 02/26/25 08:22 Completed MRI T-SPINE W & W/O CONTRAST [MRI] Routine Exams 02/28/25 13:00 Ordered MRI T-SPINE WITH CONTRAST [MRI] Routine Exams 02/28/25 12:30 Ordered THORACIC SPINE W/O CONTRAST [CT] Stat Exams 02/26/25 12:05 Completed Discharge Exam General Appearance: mild distress, alert, obese Neurologic Exam: alert, oriented x 3, cooperative, normal mood/affect, nml cerebellar function, sensation nml, No motor deficits Eye Exam: PERRL, EOMI, eyes nml inspection Ears, Nose, Throat Exam: normal ENT inspection, pharynx normal, moist mucous membranes Neck Exam: normal inspection, non-tender, supple, full range of motion Respiratory Exam: normal breath sounds, lungs clear, No respiratory distress Cardiovascular Exam: regular rate/rhythm, normal heart sounds Gastrointestinal/Abdomen Exam: soft, No tenderness, No mass Pelvic Exam: deferred Rectal Exam: deferred Back Exam: normal inspection, decreased range of motion, muscle spasm (BL lumbar back pain), No CVA tenderness, No vertebral tenderness Extremity Exam: normal inspection, normal range of motion, parasthesia (pt reports right foot numbness) Skin Exam: normal color, warm, dry Final Diagnosis/Problem List - Final Discharge Diagnosis/Problem (1) Thoracic back pain Current Visit: Yes Status: Acute Code(s): M54.6 - PAIN IN THORACIC SPINE (2) UTI (urinary tract infection) Current Visit: Yes Status: Ruled-out Code(s): N39.0 - URINARY TRACT INFECTION, SITE NOT SPECIFIED (3) Anxiety Current Visit: Yes Status: Chronic Code(s): F41.9 - ANXIETY DISORDER, UNSPECIFIED (4) Flank pain Current Visit: Yes Status: Acute Code(s): R10.9 - UNSPECIFIED ABDOMINAL PAIN (5) Hx of spinal fusion Current Visit: Yes Status: Acute Code(s): Z98.1 - ARTHRODESIS STATUS (6) Obesity (BMI 30-39.9) Current Visit: Yes Status: Chronic Code(s): E66.9 - OBESITY, UNSPECIFIED (7) Lumbar paraspinal muscle spasm Current Visit: Yes Status: Acute Assessment & Plan: (1) UTI (urinary tract infection) Current Visit: Yes Status: Acute Assessment & Plan: - Levaquin gave in the ER IV - Ceftriaxone IV started IP - CBC, CMP reviewed - Tylenol PRN 02/07 - UC negative - Antbx stopped - CBC, CMP reviewed Code(s): N39.0 - URINARY TRACT INFECTION, SITE NOT SPECIFIED (2) Anxiety Current Visit: Yes Status: Chronic Assessment & Plan: - Advised to use paper sack for breathing until calmer - Resume home meds - Compazine PRN 02/27 - Pt reports anxiety 2:2 concern about tumor reoccurrence. Code(s): F41.9 - ANXIETY DISORDER, UNSPECIFIED (3) Flank pain Current Visit: Yes Status: Acute Assessment & Plan: - CT abd/pelvis: Impression: 1. New right lung base pleural-parenchymal thickening/scarring with associated old rib fractures. 2. Stable T6-T8 fusion hardware. 3. Remaining CT abdomen/pelvis without contrast exam continues to be negative. - Likely 2:2 UTI and muscle spasm 02/27 - resolved Code(s): R10.9 - UNSPECIFIED ABDOMINAL PAIN (4) Hx of spinal fusion Current Visit: Yes Status: Acute Assessment & Plan: - CT thoracic spine: Impression: 1. Again artifact from T6-T8 fusion hardware, minimal T4-T5 degenerative endplate spurring, remote right 5/6 rib fractures, and minimal dextroscoliosis. 2. Remaining CT thoracic spine without contrast exam continues to be negative. Code(s): Z98.1 - ARTHRODESIS STATUS (5) Obesity (BMI 30-39.9) Current Visit: Yes Status: Chronic Assessment & Plan: - Advised diet and exercise control Code(s): E66.9 - OBESITY, UNSPECIFIED (6) Thoracic back pain Current Visit: Yes Status: Acute Assessment & Plan: - CT thoracic spine: Impression: 1. Again artifact from T6-T8 fusion hardware, minimal T4-T5 degenerative endplate spurring, remote right 5/6 rib fractures, and minimal dextroscoliosis. 2. Remaining CT thoracic spine without contrast exam continues to be negative. 02/27- Pt refused MRI w/o contrast and only wants with contrast- reliability technologist unable to fit pt in today for this. 02/28 - MRI pending- to be done at 1pm as pt wants with an w/o contrast only d/t her hx. - PT eval for OP needs - Pt refused to have MRI with contrast after going to MRI - MRI w/o contrast negative for acute concern. - Muscle relaxer sent in for OP - F/u with PCP and neurology OP - Per PT pt did well and able to walk without concern. Code(s): M54.6 - PAIN IN THORACIC SPINE (7) Lumbar paraspinal muscle spasm Current Visit: Yes Status: Acute Assessment & Plan: - Cyclobenzaprine BID- Stopped as pt will be receiving benadryl and also getting [place] PRN Code(s): M62.830 - MUSCLE SPASM OF BACK Code(s): M62.830 - MUSCLE SPASM OF BACK - Discharge Discharge Date: 02/28/25 Disposition: Home, Self-Care Condition: Stable Prescriptions: New Cyclobenzaprine HCl 10 mg [Cyclobenzaprine 10 MG] 5 mg PO BID 10 Days #20 tablet Continue Bupropion HCl 150 mg Sr [Wellbutrin SR 150 MG] 150 mg PO DAILY Clonidine HCl 0.1 mg [Clonidine 0.1 mg Tablet] 0.1 mg PO DAILY PRN PRN Reason: Anxiety Buspirone HCl [Bucapsol] 10 mg PO DAILY Lisdexamfetamine Dimesylate 70 mg PO DAILY Instructions: Scoliosis (DC), Muscle spasms (muscle cramps), Low back pain - Discharge instructions, Upper back pain Follow up with: MARCO A MARIN NP [NON-STAFF PHY W/O PRIVILEGES, [facility]] - 03/06/25 10:15 am
[2025-02-28] MEDS: solu-MEDROL 40 MG, Sterile H2O 10 ml 1 ML IV ONE (08:21)
[2025-02-28 11:37] VITALS: BP 114/61; PULSE 84; RESP 20; TEMP 97.9; O2SAT 96
[2025-02-28] MEDS ORDERED: BENADRYL 25 MG CAPSULE PO ONE (12:00)
[2025-02-28] MEDS ORDERED: DELTASONE 20 MG PO ONE (12:00)
[2025-02-28] MEDS: BENADRYL 50 MG/ML IV ONE (12:04)
--- NOTE | 2025-02-28 14:10 | XRAY ---
Indication: Back pain. History T6-T8 tumor. Sagittal and axial MRI thoracic spine performed without contrast using T1, T2, and STIR sequences. Comparison: None T6-T8 fusion hardware produces ferromagnetic artifact limiting these levels. Axial images negative for grossly negative for disc herniation or spinal canal stenosis. Spinal cord is normal in course and caliber without signal abnormality. Incidental old posterior right 5/6 rib fractures. Sagittal and coronal reformatted images demonstrates normal thoracic kyphosis and minimal dextroscoliosis. Visualized discs are normal in MRI signal and morphology. No acute compression fracture or subluxation. Conus medullaris terminates thoracolumbar junction. 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 Remaining MRI thoracic spine without contrast is negative.
== END 2025-02-28 15:38 | disposition home or self-care (01) ==
LOC: ED 08:00 → MED SURG 14:43
PROVIDERS: ADMIT Internal Medicine; ATTEND Internal Medicine
DX: M54.6 Pain in thoracic spine (principal); N39.0 Urinary tract infection, site not specified; F41.9 Anxiety disorder, unspecified; R10.9 Unspecified abdominal pain; Z98.1 Arthrodesis status; E66.9 Obesity, unspecified; M62.830 Muscle spasm of back; Z79.899 Other long term (current) drug therapy; Z85.830 Personal history of malignant neoplasm of bone
CPT/HCPCS: 36415; 72128; 72146; 74176; 80053; 81001; 81025; 83690; 84484; 85025; 85027; 87086; 93268; 96365; 96374; 96375; 97161; 99285; G0378; Q3014